=== PATIENT | female | born 1930 | race Two or more races ===

== ENCOUNTER 2017-06-14 19:40 | Emergency (ER) | payer OTHER ==
--- NOTE | 2017-06-14 19:52 | PDOC ---
History of Present Illness - General History Source: Patient, Family <Anatoly Wallace - Last Filed: 06/14/17 23:46> - General History Source: Patient Exam Limitations: No Limitations - History of Present Illness Initial Comments: 06/14/17 22:30 Patient is a 86 year old female with a significant past medical history of AFIB , CHF, HTN, Hyperlipidemia, Mitral Insufficiency, Diverticulosis who presents to the ED with complaints of Upper left extremity pain beginning 4 hours ago. Patient reports chest pain beginning his afternoon and began radiating to the left arm. She reports numbness in the left arm secondary to chest pain. Patient reports sweating, unproductive cough secondary to chest pain. She states she has currently being experiencing episodes of bilateral lower extremity edema. Patient reports intermittent episodes of headache and vision changes secondary to chest pain. She reports taking two asthma when chest pain began to occur 4 hours ago. She states she was given two aspirin en route to ED (Total 4). Denies SOB, difficulty breathing. Denies nausea, vomiting. Denies any other symptoms. Allergies N/A Past surgical history: None. Social history: Denies smoking. PMD: Dr. Briones <Bakari Irvin - Last Filed: 06/14/17 23:47> - General Stated Complaint: LEFT ARM PAIN Time Seen by Provider: 06/14/17 19:47 Past History - Past Medical History Diabetes: Yes HTN: Yes - Immunization History Immunization Up to Date: No - Psycho/Social/Smoking Cessation Hx Anxiety: No Suicidal Ideation: No Smoking History: Never smoked Have you smoked in the past 12 months: No Hx Alcohol Use: No Drug/Substance Use Hx: No Substance Use Type: None Hx Substance Use Treatment: No <Anatoly Wallace - Last Filed: 06/14/17 23:46> <Bakari Irvin - Last Filed: 06/14/17 23:47> - Past Medical History Allergies/Adverse Reactions: Allergies Allergy/AdvReac Type Severity Reaction Status Date / Time No Known Allergies Allergy Verified 03/11/15 13:16 Home Medications: Ambulatory Orders Aspirin [ASA -] 81 mg PO DAILY 03/11/15 Bisacodyl [Laxative] 5 mg PO DAILY 03/11/15 Melatonin 5 mg PO DAILY 03/11/15 Atorvastatin Ca [Lipitor] 80 mg PO HS tablet 03/13/15 Clopidogrel Bisulfate [Plavix -] 75 mg PO DAILY #30 tablet 03/13/15 Diltiazem Cd [Cardizem Cd -] 120 mg PO DAILY #30 cap.cd.24h 03/13/15 Furosemide [Lasix -] 40 mg PO DAILY tablet 03/13/15 Metoprolol Succinate [Toprol XL -] 25 mg PO BID #40 tab.sr.24h 03/13/15 Review of Systems - Review of Systems Able to Perform ROS?: Yes Comments:: 06/14/17 23:47 CONSTITUTIONAL: Absent: fever, no chills, no fatigue EYES: Absent: visual changes ENT: Absent: ear pain, no sore throat CARDIOVASCULAR: Absent: chest pain, no palpitations RESPIRATORY: Absent: cough, no SOB GI: Absent: abdominal pain, no nausea, no vomiting, no constipation, no diarrhea GENITOURINARY: Absent: dysuria, no frequency, no hematuria MUSCULOSKELETAL: Absent: back pain, no arthralgia, no myalgia SKIN: Absent: rash All Other Systems: Reviewed and Negative <Bakari Irvin - Last Filed: 06/14/17 23:47> *Physical Exam - Vital Signs Last Vital Signs Temp Pulse Resp BP Pulse Ox 97.3 F L 79 18 186/92 96 06/14/17 19:45 06/14/17 19:45 06/14/17 19:45 06/14/17 19:45 06/14/17 19:45 - Physical Exam Comments: 06/14/17 23:47 GENERAL: Well-appearing, well-nourished. No apparent distress. HEENT: Normocephalic, atraumatic. PERRL, EOM intact. CARDIOVASCULAR: Normal S1, S2. Regular rate and rhythm. PULMONARY: Clear to auscultation bilaterally. ABDOMEN: Soft, non-distended, non-tender. EXTREMITIES: Normal ROM in all four extremities. No gross deformities. SKIN: Warm, dry. No rash NEUROLOGICAL: No focal neurological deficits. <Bakari Irvin - Last Filed: 06/14/17 23:47> ED Treatment Course - LABORATORY CBC & Chemistry Diagram: 06/14/17 20:23 06/14/17 20:23 - RADIOLOGY Radiology Studies Ordered: Category Date Time Status CHEST X-RAY PORTABLE* [RAD] Stat Radiology 06/14/17 19:51 Ordered <Anatoly Wallace - Last Filed: 06/14/17 23:46> - LABORATORY CBC & Chemistry Diagram: 06/14/17 20:23 06/14/17 20:23 - ADDITIONAL ORDERS Additional order review: Laboratory Results 06/14/17 06/14/17 06/14/17 20:30 20:23 20:23 INR 1.05 Sodium Potassium Chloride Carbon Dioxide Anion Gap BUN Creatinine Creat Clearance w eGFR Random Glucose Calcium Magnesium Total Bilirubin AST ALT Alkaline Phosphatase Creatine Kinase Troponin I B-Natriuretic Peptide 523.59 H Total Protein Albumin Urine Color Straw Urine Appearance Clear Urine pH 6.0 Urine Protein Negative Urine Glucose (UA) 3+ H Urine Ketones Negative Urine Blood Negative Urine Nitrite Negative Urine Bilirubin Negative Urine Urobilinogen Negative Ur Leukocyte Esterase Negative 06/14/17 20:23 INR Sodium 138 Potassium 4.0 Chloride 101 Carbon Dioxide 27 Anion Gap 10 BUN 21 H Creatinine 1.1 H D Creat Clearance w eGFR 46.88 Random Glucose 269 H D Calcium 8.9 Magnesium 2.1 Total Bilirubin 0.3 D AST 16 D ALT 24 Alkaline Phosphatase 100 Creatine Kinase 68 Troponin I < 0.02 B-Natriuretic Peptide Total Protein 7.7 Albumin 4.1 Urine Color Urine Appearance Urine pH Urine Protein Urine Glucose (UA) Urine Ketones Urine Blood Urine Nitrite Urine Bilirubin Urine Urobilinogen Ur Leukocyte Esterase 06/14/17 20:23 RBC 3.85 MCV 91.2 MCHC 34.2 RDW 15.7 H MPV 10.3 Neutrophils % 69.7 Lymphocytes % 22.8 Monocytes % 7.2 Eosinophils % 0.1 D Basophils % 0.2 <Bakari Irvin - Last Filed: 06/14/17 23:47> Medical Decision Making - Medical Decision Making 06/14/17 22:42 Dr. Wallace: The scribe's documentation has been prepared under my direction and personally reviewed by me in its entirery. I confirm that the note above accurately reflects all work, treatment, procedures, and medical decision making performed by me. <Anatoly Wallace - Last Filed: 06/14/17 23:46> *DC/Admit/Observation/Transfer - Discharge Dispostion Admit: No <Anatoly Wallace - Last Filed: 06/14/17 23:46> - Attestations Scribe Attestion: 06/14/17 22:30 Documentation prepared by Bakari Irvin, acting as medical billing and coding specialist for Anatoly Wallace MD. <Bakari Irvin - Last Filed: 06/14/17 23:47> Diagnosis at time of Disposition: Left shoulder pain Qualifiers: Chronicity: unspecified Qualified Code(s): M25.512 - Pain in left shoulder - Discharge Dispostion Disposition: HOME Condition at time of disposition: Stable - Referrals Referrals: Bruno Briones MD [Primary Care Provider] - - Patient Instructions Printed Discharge Instructions: DI for Shoulder Pain Additional Instructions: Take Tylenol every 6 hours for pain, Return if symptoms become worse or follow up with your doctor
[2017-06-14 19:57] VITALS: BP 186/92; PULSE 79; TEMP 97.3; BMI 33.3
[2017-06-14 20:50] LABS: BASOPHIL 0.2 % (0-2.0); EOSINOPHIL 0.1 % (0-4.5); MCH 31.2 pg (25.7-33.7); MCHC 34.2 g/dl (32.0-36.0); MEAN CELL VOLUME 91.2 fl (80-96); MEAN PLT VOLUME 10.3 fl (7.5-11.1); NEUTROPHILS 69.7 % (42.8-82.8); PLATELET COUNT 116 K/MM3 (134-434); RDW 15.7 % (11.6-15.6); WHITE BLOOD COUNT 6.1 K/mm3 (4.0-10.0)
[2017-06-14 20:52] LABS: URINE APPEARANCE CLEAR; URINE BILIRUBIN NEGATIVE (NEGATIVE); URINE BLOOD NEGATIVE (NEGATIVE); URINE COLOR STRAW; URINE GLUCOSE (UA) 3+ (NEGATIVE); URINE KETONE NEGATIVE (NEGATIVE); URINE LEUK ESTERASE NEGATIVE (NEGATIVE); URINE NITRITE NEGATIVE (NEGATIVE); URINE PROTEIN NEGATIVE (NEGATIVE); URINE UROBILINOGEN NEGATIVE mg/dL (0.2-1.0)
[2017-06-14 21:25] LABS: ALBUMIN 4.1 g/dl (3.4-5.0); ANION GAP 10 (8-16); CALCIUM 8.9 mg/dL (8.5-10.1); CO2 27 mmol/L (21-32); CREATININE 1.1 mg/dL (0.55-1.02); GLUCOSE,RANDOM 269 mg/dL (74-106); MAGNESIUM 2.1 mg/dL (1.8-2.4); SGOT/AST 16 U/L (15-37); SGPT/ALT 24 U/L (12-78)
[2017-06-14 21:29] LABS: ALK PHOS 100 U/L (45-117); BILIRUBIN,TOTAL 0.3 mg/dL (0.2-1.0); CPK 68 IU/L (26-192); TOT PROT 7.7 g/dl (6.4-8.2); TROPONIN I < 0.02 ng/ml (0.00-0.05)
[2017-06-14 21:31] LABS: INR 1.05 (0.82-1.09); PROTHROMBIN TIME (PATIENT) 11.6 SEC (9.98-11.88)
[2017-06-14] MEDS ORDERED: ACETAMINOPHEN 325 MG TABLET (FP) PO ONE (22:41)
[2017-06-14] MEDS ORDERED: ACETAMINOPHEN 325 MG TABLET (FP) ONE (23:09)
--- NOTE | 2017-06-15 09:00 | EKG ---
Test Reason : Blood Pressure : / mmHG Vent. Rate : 085 BPM Atrial Rate : 081 BPM P-R Int : 000 ms QRS Dur : 094 ms QT Int : 402 ms P-R-T Axes : 000 -58 061 degrees QTc Int : 478 ms ATRIAL FIBRILLATION LEFT ANTERIOR FASCICULAR BLOCK ABNORMAL ECG WHEN COMPARED WITH ECG OF 12-MAR-2015 10:36, T WAVE INVERSION NO LONGER EVIDENT IN INFERIOR LEADS Confirmed by SOFIA MACEDO MD ([id number]) on 06/15/2017 9:00:25 AM Referred By: Confirmed By:SOFIA MACEDO MD
== END 2017-06-14 23:51 | disposition home or self-care (01) ==
LOC: JER 19:40
DX: M25.512 Pain in left shoulder (principal); I48.91 Unspecified atrial fibrillation; I25.10 Atherosclerotic heart disease of native coronary artery without angina pectoris; I11.0 Hypertensive heart disease with heart failure; I34.0 Nonrheumatic mitral (valve) insufficiency
CPT/HCPCS: 36415; 71010-TC; 80053; 81003; 83735; 83880; 84484; 85025; 85610; 93005; 93010; 99283-25

== ENCOUNTER 2017-06-22 10:56 | Inpatient (IN) | payer OTHER ==
--- NOTE | 2017-06-22 11:09 | PDOC ---
Attending Attestation - Resident Resident Name: Amanda,Jon - ED Attending Attestation I have performed the following: I have examined & evaluated the patient, The case was reviewed & discussed with the resident, I agree w/resident's findings & plan, Exceptions are as noted - HPI HPI: 06/22/17 16:15 86yo female with L shoulder pain, L upper back pain, b/l calf cramping, l ankle pain, generalized weakness. Denies trauma. States her joints hurt. No f/c. No back pain. No dysuria. Had a steroid injection to L shoulder by PMD 1 week ago. decreased ROM of joints secondary to pain. - Physicial Exam PE: 06/22/17 16:17 Gen: awake, alert, oriented, appears uncomfortable Heent: perrl, eomi, mmm neck: supple, no midline ttp, lateral paraspinal L neck ttp heart: +s1s2 reg Lungs: cta b/l abd: soft, nt/nd +bs back: no step offs/deformities, no midline ttp, no signs/symtpoms of caude equina, rectal muscles intact, perineal sensation intact neuro: cn ii-xii grossly intact, generally weak, limited ROM of L UE and LE secondary to pain, - Medical Decision Making 06/22/17 16:23 a/p: 86yo female with shoulder, leg, ankle pain, weakness -labs -ct head -ekg -doppler -reassess 06/22/17 16:23 pt unable to ambulate in the ED. feeling mildly better after valium to L shoulder. pt lives alone. 06/22/17 16:[address] Carrasco (covering for Dr. Ayala - covering for Dr. Briones) - accepts pt to service.
--- NOTE | 2017-06-22 11:09 | PDOC ---
History of Present Illness - General History Source: Patient, Family (Daughter) Exam Limitations: Language Barrier (Patient Kiswahili speaking only) - History of Present Illness Initial Comments: 06/22/17 11:08 Patient is an 86 year old female with a history of AFIB, CHF, HTN, HLD,mitral insufficiency and diverticulosis presenting with one day of left leg weakness and one week of left arm pain. Patient is unable to ambulate. Patient was here one week ago c/o arm pain and found to have lab abnormalities, BUN, BNP - General Chief Complaint: Pain, Acute Stated Complaint: LEG PAIN Time Seen by Provider: 06/22/17 11:08 Past History - Past Medical History Diabetes: Yes HTN: Yes - Immunization History Immunization Up to Date: No - Psycho/Social/Smoking Cessation Hx Anxiety: No Suicidal Ideation: No Smoking History: Never smoked Have you smoked in the past 12 months: No Hx Alcohol Use: No Drug/Substance Use Hx: No Substance Use Type: None Hx Substance Use Treatment: No - Past Medical History Allergies/Adverse Reactions: Allergies Allergy/AdvReac Type Severity Reaction Status Date / Time atenolol AdvReac Verified 06/22/17 11:19 liraglutide [From Victoza] AdvReac Verified 06/22/17 11:19 metoprolol AdvReac Verified 06/22/17 11:19 metoprolol succinate AdvReac Verified 06/22/17 11:19 [From Toprol XL] valsartan [From Diovan] AdvReac Verified 06/22/17 11:19 Home Medications: Ambulatory Orders Aspirin [ASA -] 81 mg PO DAILY 03/11/15 Bisacodyl [Laxative] 5 mg PO DAILY 03/11/15 Furosemide [Lasix -] 40 mg PO DAILY tablet 03/13/15 Cetirizine HCl [Zyrtec -] 10 mg PO DAILY 06/22/17 Cholecalciferol (Vitamin D3) [Vitamin D3 -] 50,000 unit PO WEEKLY 06/22/17 Diclofenac Sodium [Voltaren] 100 gm TP BID 06/22/17 Diltiazem Cd [Cardizem Cd -] 120 mg PO BID 06/22/17 Insulin Aspart [Novolog] 2 - 12 unit SQ ASDIR 06/22/17 Insulin Glargine,Hum.rec.anlog [Lantus Solostar PEN (NF)] 30 units SQ HS Linaclotide [Linzess] 145 mcg PO DAILY 06/22/17 Review of Systems - Review of Systems Able to Perform ROS?: Yes Comments:: 06/22/17 12:46 See HPI Denies ANAYA, changes to vision and hearing Endorses dry throat, mild shortness of breath Denies chest pain Denies abdominal pain, nausea, vomiting; Endorses chronic constipation Endorses pain to left shoulder Endorses numbness and pain of left leg Endorses chronic periodic urinary incontinence, denies saddle anesthesia Is the patient limited Spanish proficient: Yes ED Treatment Course - LABORATORY CBC & Chemistry Diagram: 06/22/17 11:55 06/22/17 11:55 Medical Decision Making - Medical Decision Making 06/22/17 11:09 86 yo female with history of DM, HTN, HLD, one week of left shoulder pain and new onset left leg "numbness" seen in ED 1 wk ago for left shoulder pain and seen by PCP , + steroid injection 06/22/17 11:58 06/22/17 12:40 CBC WBC 6.9 K/mm3 (4.0-10.0) 06/22/17 11:55 RBC 4.24 M/mm3 (3.60-5.2) 06/22/17 11:55 Hgb 12.7 GM/dL (10.7-15.3) 06/22/17 11:55 Hct 38.7 % (32.4-45.2) 06/22/17 11:55 MCV 91.2 fl (80-96) 06/22/17 11:55 MCH 30.0 pg (25.7-33.7) 06/22/17 11:55 MCHC 32.9 g/dl (32.0-36.0) 06/22/17 11:55 RDW 15.7 % (11.6-15.6) H 06/22/17 11:55 Plt Count 104 K/MM3 (134-434) L 06/22/17 11:55 MPV 10.6 fl (7.5-11.1) 06/22/17 11:55 Neutrophils % 71.1 % (42.8-82.8) 06/22/17 11:55 Lymphocytes % 19.2 % (8-40) 06/22/17 11:55 Monocytes % 9.3 % (3.8-10.2) 06/22/17 11:55 Eosinophils % 0.1 % (0-4.5) 06/22/17 11:55 Basophils % 0.3 % (0-2.0) 06/22/17 11:55 grossly unchanged from last visit, slight worsening of plt CMP Sodium 141 mmol/L (136-145) 06/22/17 11:55 Potassium 4.1 mmol/L (3.5-5.1) 06/22/17 11:55 Chloride 104 mmol/L (98-107) 06/22/17 11:55 Carbon Dioxide 28 mmol/L (21-32) 06/22/17 11:55 Anion Gap 9 (8-16) 06/22/17 11:55 BUN 18 mg/dL (7-18) 06/22/17 11:55 Creatinine 0.9 mg/dL (0.55-1.02) 06/22/17 11:55 Creat Clearance w eGFR 59.09 (>60) 06/22/17 11:55 Random Glucose 245 mg/dL (74-106) H 06/22/17 11:55 Calcium 8.9 mg/dL (8.5-10.1) 06/22/17 11:55 Magnesium 2.4 mg/dL (1.8-2.4) 06/22/17 11:55 Total Bilirubin 0.5 mg/dL (0.2-1.0) D 06/22/17 11:55 AST 15 U/L (15-37) 06/22/17 11:55 ALT 26 U/L (12-78) 06/22/17 11:55 Alkaline Phosphatase 99 U/L (45-117) 06/22/17 11:55 B-Natriuretic Peptide 764.41 pg/ml (5-450) H 06/22/17 11:55 Total Protein 7.0 g/dl (6.4-8.2) 06/22/17 11:55 Albumin 3.8 g/dl (3.4-5.0) 06/22/17 11:55 Grossly unchanged or improved from last visit, Slight elevation in BNP 06/22/17 14:11 xrays significant only for aoteopenia and swelling and vascular calcifications of the leg and ankle 06/22/17 15:[address]: No acute intracranial pathology Cervical spine CT: US: No evidence of DVTs Xray shoulder: Unremarkable CXR: moderate cardiomegaly, Leg xray: osteopenia, no fracture, soft tissue swelling Ankle xray: no fracture, soft tissue swelling 06/22/17 16:27 Patient is unable to ambulate, Dr. Lugo spoke with Dr. Carrasco about admitting patient for evaluation and PT. Dr. Carrasco agreed to admit to [facility] 06/22/17 16:29 *DC/Admit/Observation/Transfer - Discharge Dispostion Admit: Yes Diagnosis at time of Disposition: Left leg weakness Leg pain Qualifiers: Laterality: left Qualified Code(s): M79.605 - Pain in left leg Fluid overload Qualifiers: Hypervolemia type: unspecified Qualified Code(s): E87.70 - Fluid overload, unspecified - Referrals Referrals: Bruno Briones MD [Primary Care Provider] -
[2017-06-22 11:15] VITALS: BMI 33.3
[2017-06-22] MEDS ORDERED: diazePAM 5 MG TABLET PO ONE (12:12)
[2017-06-22 12:19] LABS: BASOPHIL 0.3 % (0-2.0); EOSINOPHIL 0.1 % (0-4.5); MCHC 32.9 g/dl (32.0-36.0); MEAN CELL VOLUME 91.2 fl (80-96); MEAN PLT VOLUME 10.6 fl (7.5-11.1); NEUTROPHILS 71.1 % (42.8-82.8); PLATELET COUNT 104 K/MM3 (134-434); RDW 15.7 % (11.6-15.6); WHITE BLOOD COUNT 6.9 K/mm3 (4.0-10.0)
[2017-06-22 12:25] LABS: ALBUMIN 3.8 g/dl (3.4-5.0); ANION GAP 9 (8-16); BILIRUBIN,TOTAL 0.5 mg/dL (0.2-1.0); CALCIUM 8.9 mg/dL (8.5-10.1); CO2 28 mmol/L (21-32); CREATININE 0.9 mg/dL (0.55-1.02); GLUCOSE,RANDOM 245 mg/dL (74-106); SGOT/AST 15 U/L (15-37); SGPT/ALT 26 U/L (12-78)
[2017-06-22 12:28] LABS: ALK PHOS 99 U/L (45-117)
[2017-06-22 12:40] LABS: MAGNESIUM 2.4 mg/dL (1.8-2.4)
[2017-06-22] MEDS ORDERED: diazePAM 2 MG TABLET ONE (12:47)
[2017-06-22 13:43] LABS: URINE APPEARANCE SLCLOUDY; URINE BILIRUBIN NEGATIVE (NEGATIVE); URINE BLOOD 1+ (NEGATIVE); URINE COLOR YELLOW; URINE GLUCOSE (UA) 1+ (NEGATIVE); URINE KETONE NEGATIVE (NEGATIVE); URINE NITRITE NEGATIVE (NEGATIVE); URINE PROTEIN NEGATIVE (NEGATIVE); URINE UROBILINOGEN NEGATIVE mg/dL (0.2-1.0)
[2017-06-22 14:15] LABS: URINE LEUK ESTERASE 1+ (NEGATIVE)
[2017-06-22 14:18] LABS: URINE RBC 5 /hpf (0-3); URINE WBC 9 /hpf (3-5)
[2017-06-22 14:19] LABS: URINE MUCUS RARE
[2017-06-22] MEDS ORDERED: FUROSEMIDE 40 MG/4 ML INJECTABLE VIAL IVPB ONE (16:12)
[2017-06-22] MEDS ORDERED: FUROSEMIDE 40 MG/4 ML INJECTABLE VIAL ONE (16:34)
[2017-06-22] MEDS ORDERED: BISACODYL 5 MG TABLET.DR (FP) PO PRN (18:59)
[2017-06-22] MEDS ORDERED: ACETAMINOPHEN 325 MG TABLET (FP) PO PRN (18:59)
[2017-06-22] MEDS ORDERED: hydrALAZINE HCL 10 MG TABLET PO ONE (19:02)
[2017-06-22] MEDS: INSULIN SLIDING SCALE (NOVOLOG) 1 VIAL SQ SCH (21:51)
[2017-06-22] MEDS: INSULIN DETEMIR 100 UNITS/ML MDV SQ SCH (21:52)
[2017-06-23] MEDS: INSULIN SLIDING SCALE (NOVOLOG) 1 VIAL SQ SCH ×4 (06:44→21:30)
[2017-06-23 08:42] LABS: MCH 30.3 pg (25.7-33.7); MCHC 33.9 g/dl (32.0-36.0); MEAN CELL VOLUME 89.4 fl (80-96); PLATELET COUNT 105 K/MM3 (134-434); RDW 15.3 % (11.6-15.6)
[2017-06-23 09:26] LABS: ALBUMIN 3.6 g/dl (3.4-5.0); ALK PHOS 102 U/L (45-117); ANION GAP 6 (8-16); BILIRUBIN,TOTAL 0.7 mg/dL (0.2-1.0); CO2 30 mmol/L (21-32); CREATININE 0.7 mg/dL (0.55-1.02); GLUCOSE,RANDOM 160 mg/dL (74-106); SGOT/AST 16 U/L (15-37); SGPT/ALT 25 U/L (12-78); TOT PROT 7.1 g/dl (6.4-8.2)
[2017-06-23] MEDS ORDERED: PT OWN MED DRAWER 7, Y5N ONE (10:01)
[2017-06-23] MEDS: METHYL SALICYLATE/MENTHOL OINT 30 GM TUBE TP SCH (10:04)
[2017-06-23] MEDS: ASPIRIN COATED 81 MG TABLET.EC PO SCH (10:04)
[2017-06-23] MEDS: FUROSEMIDE 40 MG/4 ML INJECTABLE VIAL IVPB SCH (10:05)
--- NOTE | 2017-06-23 10:44 | HP ---
Admitting History and Physical - Primary Care Physician PCP: David Carrasco - Admission Chief Complaint: LEG WEAKNESS/UNSTEADY GAIT History of Present Illness: 86 Y/O FEMALE WITH AFIB/DM/HTN HERE WITH PROGRESSIVELY WORSE WEAKNESS TO LEG AND UNSTEADY GAIT History Source: Patient Limitations to Obtaining History: Poor Historian - Past Medical History Cardiovascular: Yes: AFIB, CHF, HTN, Hyperlipdemia, Mitral Insufficiency Gastrointestinal: Yes: Diverticulosis. No: Ascites, Cancer, Constipation, Crohn 's Disease, Diverticulitis, Esophageal Varices, Gastritis, GERD, GI Bleed, Hemorrhoids, Hiatal Hernia, Inflamatory Bowel Disease, Irritable Bowel Disease, Pancreatitis, Peptic Ulcer Disease, Ulcerative Colitis, Other Endocrine: Yes: Diabetes Mellitus. No: Kenedy's Disease, Mio's Disease, Diabetes Insipidus, Hyperparathyroidism, Hyperthyroidism, Hypothyroidism, Osteopenia, SIADH, Other - Past Surgical History Past Surgical History: Yes: None. No: AAA Repair, AICD, Amputation, Appendectomy, Arthrosocopy, AV Fistula/Graft, Bariatric Surgery, Breast Biopsy, Bypass, CABG, Carotid Endarterectomy, Cataract Removal, Cholecystectomy, Colectomy, Colonoscopy, Colostomy, Craniotomy, , Cystectomy, Hernia Repair, Hysterectomy, Ileal Conduit, Ileosotomy, Joint Replacement, Kidney Transplant, Laminectomy, Liver Transplant, Mastectomy, Nephrectomy, Oopherectomy , Orchiectomy, Permanent Pacemaker, Prostatectomy, Splenectomy, Stent, Thoracotomy, TURP, Tonsillectomy, Tubal Ligation, Upper Endoscopy, Valve Replacement, Vasectomy, Vein Stripping/Ligation - Smoking History Smoking history: Never smoked Have you smoked in the past 12 months: No - Alcohol/Substance Use Hx Alcohol Use: No History of Substance Use: reports: None - Social History ADL: Independent Occupation: retired History of Recent Travel: No Home Medications - Allergies Allergies/Adverse Reactions: Allergies Allergy/AdvReac Type Severity Reaction Status Date / Time atenolol AdvReac Verified 06/22/17 11:19 liraglutide [From Victoza] AdvReac Verified 06/22/17 11:19 metoprolol AdvReac Verified 06/22/17 11:19 metoprolol succinate AdvReac Verified 06/22/17 11:19 [From Toprol XL] valsartan [From Diovan] AdvReac Verified 06/22/17 11:19 - Home Medications Home Medications: Ambulatory Orders Aspirin [ASA -] 81 mg PO DAILY 03/11/15 Bisacodyl [Laxative] 5 mg PO DAILY 03/11/15 Furosemide [Lasix -] 40 mg PO DAILY tablet 03/13/15 Cetirizine HCl [Zyrtec -] 10 mg PO DAILY 06/22/17 Cholecalciferol (Vitamin D3) [Vitamin D3 -] 50,000 unit PO WEEKLY 06/22/17 Diclofenac Sodium [Voltaren] 100 gm TP BID 06/22/17 Diltiazem Cd [Cardizem Cd -] 120 mg PO BID 06/22/17 Insulin Aspart [Novolog] 2 - 12 unit SQ ASDIR 06/22/17 Insulin Glargine,Hum.rec.anlog [Lantus Solostar PEN (NF)] 30 units SQ HS Linaclotide [Linzess] 145 mcg PO DAILY 06/22/17 Review of Systems - Review of Systems Constitutional: reports: Weakness Eyes: reports: No Symptoms HENT: reports: No Symptoms Neck: reports: No Symptoms Cardiovascular: reports: No Symptoms Respiratory: reports: No Symptoms Gastrointestinal: reports: No Symptoms Genitourinary: reports: No Symptoms Musculoskeletal: reports: Muscle Weakness Integumentary: reports: No Symptoms Neurological: reports: Unsteady Gait, Weakness Endocrine: reports: No Symptoms Hematology/Lymphatic: reports: No Symptoms Psychiatric: reports: Other Physical Examination Vital Signs: Vital Signs Temperature 97.4 F L 06/23/17 06:00 Pulse Rate 76 06/23/17 06:00 Respiratory Rate 16 06/23/17 06:00 Blood Pressure 140/71 06/22/17 22:00 O2 Sat by Pulse Oximetry (%) 96 06/22/17 22:00 Constitutional: Yes: Mild Distress Eyes: Yes: WNL HENT: Yes: WNL Neck: Yes: WNL Cardiovascular: Yes: Pulse Irregular Respiratory: Yes: WNL Gastrointestinal: Yes: WNL Renal/: Yes: WNL Musculoskeletal: Yes: WNL Extremities: Yes: WNL Edema: No Integumentary: Yes: WNL Wound/Incision: Yes: Clean/Dry Neurological: Yes: Pre-Existing Deficit, Weakness ...Motor Strength: LLE, RLE (WEAKNESS) Psychiatric: Yes: Other Labs: CBC, BMP 06/23/17 08:00 06/23/17 08:00 Problem List - Problems (1) Left leg weakness Code(s): R29.898 - OTH SYMPTOMS AND SIGNS INVOLVING THE MUSCULOSKELETAL SYSTEM (2) Leg pain Code(s): M79.606 - PAIN IN LEG, UNSPECIFIED Qualifiers: Laterality: left Qualified Code(s): M79.605 - Pain in left leg (3) A-fib Code(s): I48.91 - UNSPECIFIED ATRIAL FIBRILLATION Assessment/Plan PT EVAL CT HEAD/XRAYS LEGS NO ACUTE CHANGES SNF WHEN READY SSI HTN AND AFIB CONTROL BRM AC/HS
[2017-06-23] MEDS ORDERED: INSULIN (NOVOLOG) ASPART 100 UNITS/ML 10ML VIAL ONE ×2 (17:30→19:59)
[2017-06-23] MEDS: INSULIN DETEMIR 100 UNITS/ML MDV SQ SCH (21:30)
[2017-06-24] MEDS: INSULIN SLIDING SCALE (NOVOLOG) 1 VIAL SQ SCH ×4 (06:02→23:34)
[2017-06-24] MEDS ORDERED: PT OWN MED DRAWER 7, Y5N ONE (09:18)
[2017-06-24] MEDS: FUROSEMIDE 40 MG/4 ML INJECTABLE VIAL IVPB SCH ×2 (09:23→12:40)
[2017-06-24] MEDS: ASPIRIN COATED 81 MG TABLET.EC PO SCH ×2 (09:23→12:40)
[2017-06-24] MEDS: METHYL SALICYLATE/MENTHOL OINT 30 GM TUBE TP SCH (09:23)
--- NOTE | 2017-06-24 13:44 | PN ---
Progress Note, Physician Chief Complaint: AWAKE, DAUGHTER BEDSIDE THEY ARE IN AN AGREEMENT TO GO TO SNF - Current Medication List Current Medications: Active Medications Acetaminophen (Tylenol -) 650 mg PO Q6H PRN PRN Reason: FEVER OR PAIN Aspirin (Ecotrin -) 81 mg PO DAILY [facility] Last Admin: 06/24/17 12:40 Dose: Not Given Bisacodyl (Dulcolax -) 5 mg PO DAILY PRN PRN Reason: CONSTIPATION Last Admin: 06/24/17 09:35 Dose: 5 mg Diltiazem HCl (Cardizem Cd -) 120 mg PO DAILY [facility] Last Admin: 06/24/17 09:23 Dose: 120 mg Furosemide (Lasix Injection -) 40 mg IVPB DAILY [facility] Last Admin: 06/24/17 12:40 Dose: Not Given Insulin Aspart (Novolog Vial Sliding Scale -) 1 vial SQ ACHS [place]LEY PRN Reason: Protocol Last Admin: 06/24/17 12:40 Dose: Not Given Insulin Detemir (Levemir Vial) 25 units SQ HS [facility] Last Admin: 06/23/17 21:30 Dose: 25 units Methyl Salicylate (Jose-Cyr -) 1 applic TP DAILY [facility] Last Admin: 06/24/17 09:23 Dose: 1 applic - Objective Vital Signs: Vital Signs Temperature 97.0 F L 06/24/17 09:38 Pulse Rate 84 06/24/17 09:38 Respiratory Rate 20 06/24/17 09:38 Blood Pressure 132/88 06/24/17 09:38 O2 Sat by Pulse Oximetry (%) 97 06/24/17 09:00 Constitutional: Yes: No Distress Eyes: Yes: WNL HENT: Yes: WNL Neck: Yes: WNL Cardiovascular: Yes: WNL Respiratory: Yes: WNL Gastrointestinal: Yes: WNL Genitourinary: Yes: WNL Musculoskeletal: Yes: Joint Stiffness, Muscle Weakness Extremities: Yes: Deformity Edema: Yes Edema: LLE: 2+, RLE: 2+ Peripheral Pulses WNL: Yes Integumentary: Yes: WNL Wound/Incision: Yes: Clean/Dry Neurological: Yes: Unsteady Gait, Weakness ...Motor Strength: LLE, RLE Psychiatric: Yes: Other Labs: CBC, BMP 06/23/17 08:00 06/23/17 08:00 Problem List - Problems (1) Left leg weakness Code(s): R29.898 - OTH SYMPTOMS AND SIGNS INVOLVING THE MUSCULOSKELETAL SYSTEM (2) Leg pain Code(s): M79.606 - PAIN IN LEG, UNSPECIFIED Qualifiers: Laterality: left Qualified Code(s): M79.605 - Pain in left leg (3) A-fib Code(s): I48.91 - UNSPECIFIED ATRIAL FIBRILLATION Assessment/Plan PT EVAL CT HEAD/XRAYS LEGS NO ACUTE CHANGES SNF WHEN READY SSI HTN AND AFIB CONTROL BRM AC/HS
[2017-06-24] MEDS: INSULIN DETEMIR 100 UNITS/ML MDV SQ SCH (23:33)
[2017-06-25] MEDS ORDERED: PT OWN MED DRAWER 7, Y5N ONE (05:07)
[2017-06-25] MEDS: INSULIN SLIDING SCALE (NOVOLOG) 1 VIAL SQ SCH ×3 (06:19→17:51)
[2017-06-25] MEDS: FUROSEMIDE 40 MG/4 ML INJECTABLE VIAL IVPB SCH (10:03)
[2017-06-25] MEDS: ASPIRIN COATED 81 MG TABLET.EC PO SCH (10:03)
[2017-06-25] MEDS: BISACODYL 5 MG TABLET.DR (FP) PO PRN (13:13)
[2017-06-25 13:21] LABS: ANION GAP 8 (8-16); CALCIUM 8.7 mg/dL (8.5-10.1); CO2 28 mmol/L (21-32); CREATININE 0.9 mg/dL (0.55-1.02); GLUCOSE,RANDOM 281 mg/dL (74-106)
--- NOTE | 2017-06-25 13:22 | PN ---
Progress Note, Physician Chief Complaint: admitted for leg weakness and unsteady gait- refusing to take meds wants to use her own mesds says that aspirin is not [place] aspirin, will not take insulin despite elevated bgm family aware to get patient own meds from home - Current Medication List Current Medications: Active Medications Acetaminophen (Tylenol -) 650 mg PO Q6H PRN PRN Reason: FEVER OR PAIN Aspirin (Ecotrin -) 81 mg PO DAILY [facility] Last Admin: 06/25/17 10:03 Dose: Not Given Bisacodyl (Dulcolax -) 10 mg PO DAILY PRN PRN Reason: CONSTIPATION Diltiazem HCl (Cardizem Cd -) 120 mg PO DAILY [facility] Last Admin: 06/25/17 10:03 Dose: 120 mg Insulin Aspart (Novolog Vial Sliding Scale -) 1 vial SQ ACHS [place] PRN Reason: Protocol Last Admin: 06/25/17 12:50 Dose: Not Given Insulin Detemir (Levemir Vial) 25 units SQ HS [facility] Last Admin: 06/24/17 23:33 Dose: Not Given Methyl Salicylate (Jose-Cyr -) 1 applic TP DAILY [facility] Last Admin: 06/24/17 09:23 Dose: 1 applic - Objective Vital Signs: Vital Signs Temperature 98.1 F 06/25/17 06:00 Pulse Rate 84 06/25/17 06:00 Respiratory Rate 20 06/25/17 06:00 Blood Pressure 151/85 06/25/17 06:00 O2 Sat by Pulse Oximetry (%) 97 06/24/17 21:00 Constitutional: Yes: Calm Cardiovascular: Yes: Regular Rate and Rhythm, S1, S2 Respiratory: Yes: CTA Bilaterally Gastrointestinal: Yes: Normal Bowel Sounds, Soft Edema: No Neurological: Yes: Alert Labs: CBC, BMP 06/23/17 08:00 Problem List - Problems (1) Left leg weakness Assessment/Plan: PT eval PMR consult martha need snf Code(s): R29.898 - OTH SYMPTOMS AND SIGNS INVOLVING THE MUSCULOSKELETAL SYSTEM (2) A-fib Assessment/Plan: on asa as has refused AC ni past per old records cardio eval cardizem Code(s): I48.91 - UNSPECIFIED ATRIAL FIBRILLATION (3) CHF (congestive heart failure) Assessment/Plan: h/o diastolic heart failure will repeat echo Code(s): I50.9 - HEART FAILURE, UNSPECIFIED (4) Diabetes Assessment/Plan: hga1c 9.3 uncontrolled endocrine eval patient to use own insulin refusing to take insulin from hospital Code(s): E11.9 - TYPE 2 DIABETES MELLITUS WITHOUT COMPLICATIONS
--- NOTE | 2017-06-25 16:49 | CON.CARD ---
Cardiology Consult (text) - Consultation Consultation Note: cc: cad/afib hpi: 86 yo with h/o afib (asa only, refuses AC), NSTEMI 03/2015 (medical management), htn, hld, dCHF (takes lasix prn up to 3 times/week), mod MR, dm, here with lt LE weakness. States her LE strength is improved. Per report, patient had also endorsed left arm pain. But unable to clarify this history. Currently endorsing LE pain. Endorses history of shoulder and neck pain. Takes lasix prn at home - up to 3 times a week when her LE edema worsens and not at all when her she is asx. currently does not feel that she has any LE edema. has been declining ASA here and IV lasix. Has been taking diltiazem. No sob, palps, dizzy, loc, pnd, orthopnea, le edema. Sees Dr. Parrish for cards. pmh: per hpi psh: non contrib social: no toxic habits ros: per hpi; no f/c/s, nvd, cough, nasal congestion, ANAYA, vision changes, rash , wt changes fam: no family h/o scd. Ambulatory Orders Aspirin [ASA -] 81 mg PO DAILY 03/11/15 Bisacodyl [Laxative] 5 mg PO DAILY 03/11/15 Furosemide [Lasix -] 40 mg PO DAILY tablet 03/13/15 Cetirizine HCl [Zyrtec -] 10 mg PO DAILY 06/22/17 Cholecalciferol (Vitamin D3) [Vitamin D3 -] 50,000 unit PO WEEKLY 06/22/17 Diclofenac Sodium [Voltaren] 100 gm TP BID 06/22/17 Diltiazem Cd [Cardizem Cd -] 120 mg PO BID 06/22/17 Insulin Aspart [Novolog] 2 - 12 unit SQ ASDIR 06/22/17 Insulin Glargine,Hum.rec.anlog [Lantus Solostar PEN (NF)] 30 units SQ HS Linaclotide [Linzess] 145 mcg PO DAILY 06/22/17 Current Medications Acetaminophen (Tylenol -) 650 mg PO Q6H PRN PRN Reason: FEVER OR PAIN Aspirin (Ecotrin -) 81 mg PO DAILY [facility] Last Admin: 06/25/17 10:03 Dose: Not Given Bisacodyl (Dulcolax -) 10 mg PO DAILY PRN PRN Reason: CONSTIPATION Last Admin: 06/25/17 13:13 Dose: 10 mg Diltiazem HCl (Cardizem Cd -) 120 mg PO DAILY [facility] Last Admin: 06/25/17 10:03 Dose: 120 mg Insulin Aspart (Novolog Vial Sliding Scale -) 1 vial SQ ACHS [facility] PRN Reason: Protocol Last Admin: 06/25/17 12:50 Dose: Not Given Insulin Detemir (Levemir Vial) 25 units SQ HS [facility] Last Admin: 06/24/17 23:33 Dose: Not Given Methyl Salicylate (Jose-Cyr -) 1 applic TP DAILY [facility] Last Admin: 06/24/17 09:23 Dose: 1 applic pe: Vital Signs - 24 hr 06/24/17 06/24/17 06/24/17 17:33 21:00 22:00 Temperature 97.0 F L 98.7 F Pulse Rate 88 85 Respiratory 20 20 20 Rate Blood Pressure 134/88 154/92 O2 Sat by Pulse 97 Oximetry (%) 06/25/17 06/25/17 06/25/17 06:00 09:00 10:00 Temperature 98.1 F 97.0 F L Pulse Rate 84 84 Respiratory 20 18 Rate Blood Pressure 151/85 150/90 O2 Sat by Pulse 97 Oximetry (%) 06/25/17 13:15 Temperature 98.6 F Pulse Rate 103 H Respiratory 18 Rate Blood Pressure 138/72 O2 Sat by Pulse Oximetry (%) Intake & Output 06/23/17 06/24/17 06/25/17 06/26/17 07:59 07:59 07:59 07:59 Intake Total 150 850 710 150 Output Total 200 Balance -50 850 710 150 Weight 200 lb nad, no jvd irreg, s1 s2 no mrg cta b/l, nl eff no le e/c/c abd nt nd pos bs pos dp pt no jaundice/diaphoresis aaox3 CBC, BMP 06/23/17 08:00 06/25/17 12:40 Laboratory Tests 06/22/17 06/23/17 06/23/17 11:55 08:00 11:30 Hemoglobin A1c % 9.5 H D Magnesium 2.4 Total Bilirubin 0.7 D AST 16 ALT 25 Alkaline Phosphatase 102 B-Natriuretic Peptide 764.41 H Albumin 3.6 Laboratory Tests 03/11/15 06/14/17 17:20 20:23 B-Natriuretic Peptide 1112.55 H 523.59 H cxr: limited evaluation of left lung base. head CT: no acute pathology no ekg. echo 02/2016: nl lv size, low nl lvef, mild global hk, nl rv, mild lae, mod mr, mild tr, rvsp 40-50 mibi 03/2014: no ischemia, nl lvef cath 10/2014 ([facility] – [place]): non obs cad (mild diffuse pRCA disease was only abnormality noted); also had RHC c/w diastolic chf a/p: 86 yo with h/o afib (asa only, refuses AC), NSTEMI 03/2015 (medical management), htn, hld, dCHF (takes lasix 3 times/week), mod MR, dm, here with lt LE weakness. LE weakness - improving. ongoing eval/mgm't by pmd. Has PT evaluation. diastolic CHF: -currently asx and appears euvolemic. Takes lasix prn as outpatient, refusing IV lasix here. States she currently feels her LE edema is improved from baseline --> ok to hold po lasix. Daily standing weights to better assess volume status. afib: - Overall rate controlled with dilt. Patient on bid dosing at home, but getting daily here. Would increase to bid dosing. - Pt has previously been tried on coumadin, xarelto, eliquis, and pradaxa as outpatient and has stopped taking them due to nonspecific side effects --> declines AC and is managed with ASA alone as outpatient. However, currently declining asa here as inpatient. htn: - has had numerous side effects/intolerances to various med classes. currently overall controlled for age. Continue diltiazem, increasing to outpatient bid dosing. hld: - pt declines statin. mod MR: - routine surveillance echocardiograms as outpatient. No signs of valvular decompensation. bp/diuresis plan as above. CAD - has hx of prior nstemi in 2014. At that time was treated conservatively with medical management only due to her medication noncompliance and hx of self-d' cing meds. She has declined plavix, statin, BB in the past. She has no cp/ angina, continue asa (if she will take) and dilt. Will order EKG.
[2017-06-25] MEDS: METHYL SALICYLATE/MENTHOL OINT 30 GM TUBE TP SCH (17:00)
[2017-06-25] MEDS ORDERED: POTASSIUM CHLORIDE TABS 20 MEQ TABLET.ER (FP) PO ONE ×2 (18:33→22:30)
[2017-06-25] MEDS ORDERED: INSULIN LANTUS SQ SCH ×2 (20:00→20:06)
--- NOTE | 2017-06-26 00:04 | CONSULT ---
Consult Consult Specialty:: endocrine Referred by:: dr isabel cardoza Reason for Consultation:: high blood sugars - History of Present Illness Chief Complaint: difficulty controlling blood sugars History of Present Illness: 86year old female with a history of AFIB, CHF, HTN, HLD,mitral insufficiency and diverticulosis presenting with one day of left leg weakness and one week of left arm pain. Patient is unable to ambulate.has labile bood sugars,taking lantus at bed time has frequent hypo,and hyperglycemia, mostly elevated sugars - Past Medical History Cardio/Vascular: Yes: AFIB, CHF, HTN, Hyperlipdemia, Mitral Insufficiency Gastrointestinal: Yes: Diverticulosis. No: Ascites, Cancer, Constipation, Crohn 's Disease, Diverticulitis, Esophageal Varices, Gastritis, GERD, GI Bleed, Hemorrhoids, Hiatal Hernia, Inflamatory Bowel Disease, Irritable Bowel Disease, Pancreatitis, Peptic Ulcer Disease, Ulcerative Colitis, Other Endocrine: Yes: Diabetes Mellitus. No: Eran's Disease, [place]'s Disease, Diabetes Insipidus, Hyperparathyroidism, Hyperthyroidism, Hypothyroidism, Osteopenia, SIADH, Other - Past Surgical History Past Surgical History: Yes: None. No: AAA Repair, AICD, Amputation, Appendectomy, Arthrosocopy, AV Fistula/Graft, Bariatric Surgery, Breast Biopsy, Bypass, CABG, Carotid Endarterectomy, Cataract Removal, Cholecystectomy, Colectomy, Colonoscopy, Colostomy, Craniotomy, , Cystectomy, Hernia Repair, Hysterectomy, Ileal Conduit, Ileosotomy, Joint Replacement, Kidney Transplant, Laminectomy, Liver Transplant, Mastectomy, Nephrectomy, Oopherectomy , Orchiectomy, Permanent Pacemaker, Prostatectomy, Splenectomy, Stent, Thoracotomy, TURP, Tonsillectomy, Tubal Ligation, Upper Endoscopy, Valve Replacement, Vasectomy, Vein Stripping/Ligation - Alcohol/Substance Use Hx Alcohol Use: No History of Substance Use: reports: None - Smoking History Smoking history: Never smoked Have you smoked in the past 12 months: No - Social History ADL: Independent Occupation: retired History of Recent Travel: No Home Medications - Allergies Allergies/Adverse Reactions: Allergies Allergy/AdvReac Type Severity Reaction Status Date / Time atenolol AdvReac Verified 06/22/17 11:19 liraglutide [From Victoza] AdvReac Verified 06/22/17 11:19 metoprolol AdvReac Verified 06/22/17 11:19 metoprolol succinate AdvReac Verified 06/22/17 11:19 [From Toprol XL] valsartan [From Diovan] AdvReac Verified 06/22/17 11:19 - Home Medications Home Medications: Ambulatory Orders Aspirin [ASA -] 81 mg PO DAILY 03/11/15 Bisacodyl [Laxative] 5 mg PO DAILY 03/11/15 Furosemide [Lasix -] 40 mg PO DAILY tablet 03/13/15 Cetirizine HCl [Zyrtec -] 10 mg PO DAILY 06/22/17 Cholecalciferol (Vitamin D3) [Vitamin D3 -] 50,000 unit PO WEEKLY 06/22/17 Diclofenac Sodium [Voltaren] 100 gm TP BID 06/22/17 Diltiazem Cd [Cardizem Cd -] 120 mg PO BID 06/22/17 Insulin Aspart [Novolog] 2 - 12 unit SQ ASDIR 06/22/17 Insulin Glargine,Hum.rec.anlog [Lantus Solostar PEN (NF)] 30 units SQ HS Linaclotide [Linzess] 145 mcg PO DAILY 06/22/17 Review of Systems - Review of Systems Constitutional: reports: Loss of Appetite, Weakness Eyes: reports: Blurred Vision HENT: reports: No Symptoms Neck: reports: Decreased ROM Cardiovascular: reports: No Symptoms Respiratory: reports: No Symptoms Gastrointestinal: reports: No Symptoms Genitourinary: reports: No Symptoms Breasts: reports: No Symptoms Reported Musculoskeletal: reports: Joint Pain, Joint Swelling, Muscle Pain, Muscle Weakness Neurological: reports: Unsteady Gait, Weakness Physical Exam Vital Signs: Vital Signs Temperature 98.7 F 06/25/17 18:00 Pulse Rate 83 06/25/17 18:00 Respiratory Rate 18 06/25/17 18:00 Blood Pressure 126/73 06/25/17 18:00 O2 Sat by Pulse Oximetry (%) 97 06/25/17 09:00 Constitutional: Yes: Anxious Eyes: Yes: EOM Intact HENT: Yes: Normocephalic Neck: Yes: Trachea Midline Cardiovascular: Yes: Regular Rate and Rhythm Respiratory: Yes: CTA Bilaterally Gastrointestinal: Yes: Normal Bowel Sounds ...Rectal Exam: Yes: Deferred Renal/: Yes: WNL Breast(s): Yes: WNL Musculoskeletal: Yes: WNL, Joint Stiffness, Joint Swelling, Muscle Pain Extremities: Yes: WNL Edema: No Integumentary: Yes: WNL Neurological: Yes: Alert, Oriented, Numbness, Unsteady Gait Labs: CBC, BMP 06/23/17 08:00 06/25/17 12:40 Problem List - Problems (1) Diabetes Code(s): E11.9 - TYPE 2 DIABETES MELLITUS WITHOUT COMPLICATIONS Qualifiers: Diabetes mellitus complication status: with diabetic arthropathy (2) Fluid overload Code(s): E87.70 - FLUID OVERLOAD, UNSPECIFIED Qualifiers: Hypervolemia type: unspecified Qualified Code(s): E87.70 - Fluid overload, unspecified (3) Left leg weakness Code(s): R29.898 - OTH SYMPTOMS AND SIGNS INVOLVING THE MUSCULOSKELETAL SYSTEM (4) Type 2 diabetes mellitus with other circulatory complications Code(s): E11.59 - TYPE 2 DIABETES MELLITUS WITH OTH CIRCULATORY COMPLICATIONS Assessment/Plan Current Active Problems Diabetes (Acute) Fluid overload (Acute) Left leg weakness (Acute) Leg pain (Acute) uncontrolled dm,neuropathy Abnormal Lab Results 06/25/17 12:40 BUN 19 H Random Glucose 281 H D Laboratory Results - last 24 hr 06/25/17 06/25/17 06/25/17 11:15 12:40 17:29 Sodium 137 Potassium 3.6 Chloride 101 Carbon Dioxide 28 Anion Gap 8 BUN 19 H Creatinine 0.9 D POC Glucometer 250 264 Random Glucose 281 H D Calcium 8.7 06/25/17 23:33 Sodium Potassium Chloride Carbon Dioxide Anion Gap BUN Creatinine POC Glucometer 273 Random Glucose Calcium Laboratory Tests 06/23/17 06/24/17 06/24/17 11:30 16:52 22:20 Sodium Potassium Chloride Carbon Dioxide Anion Gap BUN Creatinine POC Glucometer 287 247 Random Glucose Hemoglobin A1c % 9.5 H D 06/25/17 06/25/17 06/25/17 11:15 12:40 17:29 Sodium 137 Potassium 3.6 Chloride 101 Carbon Dioxide 28 Anion Gap 8 BUN 19 H Creatinine 0.9 D POC Glucometer 250 264 Random Glucose 281 H D Hemoglobin A1c % 06/25/17 23:33 Sodium Potassium Chloride Carbon Dioxide Anion Gap BUN Creatinine POC Glucometer 273 Random Glucose Hemoglobin A1c % plan: bgm tid ac meal coverage low dose novolog use lantus am 20 units
[2017-06-26] MEDS ORDERED: LANTUS INSULIN SQ SCH (07:00)
[2017-06-26] MEDS ORDERED: INSULIN DETEMIR 100 UNITS/ML MDV SQ SCH (07:00)
[2017-06-26] MEDS ORDERED: INSULIN LANTUS SQ SCH (07:00)
[2017-06-26] MEDS: INSULIN SLIDING SCALE (NOVOLOG) 1 VIAL SQ SCH ×2 (07:04→12:00)
--- NOTE | 2017-06-26 09:49 | CONS ---
PHYSICAL MEDICINE REHABILITATION CONSULTATION DATE OF CONSULTATION: 06/26/2017 REFERRING PHYSICIAN: David Carrasco MD DATE OF ADMISSION: 06/22/2017 HISTORY OF PRESENT ILLNESS: Patient is an 86-year-old woman with past medical history of uncontrolled diabetes, atrial fibrillation, congestive heart failure, hyperlipidemia, who was admitted with weakness, pain both in the left upper extremity as well as the bilateral lower extremities. Patient has undergone multiple imaging studies including CT of the head which showed no acute intracranial pathology, with some moderate atrophy. CT of the cervical spine showed normal alignment with some mild degenerative changes. 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 Patient had x-rays including the left shoulder which was unremarkable, chest x-ray which was a limited study. X-ray of the left leg showed soft tissue swelling, vascular calcifications, and some soft tissue swelling over the medial malleolus. Patient's blood work showed elevated hemoglobin A1c of 9.5. She had slightly increased BUN to creatinine ratio of 18 to 0.9. On admission, BNP was slightly elevated. Otherwise, chemistry unremarkable. CBC showed low platelet count of 104, repeat at 105, but stable hemoglobin on June 23 of 13.0; normal WBC of 7.0. Patient was evaluated by Physical Therapy. Able to ambulate short distance, 30 feet, with a waddling gait. Moderate assist was required for [id number] transfer. Patient complains of pain under both posterior ankles in the area of the Achilles as well as in the left shoulder. PAST MEDICAL AND SURGICAL HISTORY: As above. Patient also has a history of obesity, in addition to diabetes; OR; diffuse osteoarthritis; atrial fibrillation, rate controlled; hypertension. SOCIAL HISTORY: Patient lives in an apartment. There is an elevator for entrance. Per the medical record, patient ambulated without assistive device until recently when she started using a rollator. She has a home health aide Sunday through Sunday, 4 hours a day, and also, has a cane at home. CURRENT FUNCTION: As above. REVIEW OF SYSTEMS: No headache. No lightheaded or dizziness currently, although she gets lightheaded at times. No nausea, vomiting, difficulty swallowing, or difficulty chewing. No chest pain, shortness of breath, dyspnea on exertion, cough, or abdominal pain. No bowel or bladder incontinence or retention. She has numbness in the distal lower extremities, pain under both ankles as well as the left shoulder with movement. No pain at rest. No numbness or tingling in the upper extremities. PHYSICAL EXAMINATION: General: An obese woman, seen lying in bed. She is awake and cooperative with Citizen [place] commands. HEENT: She is normocephalic and atraumatic. Her extraocular muscles appear intact. Neck: Supple. Extremities: Trace edema in the lower extremities. She is tender under the bilateral calf in the area of the Achilles tendon and just proximal to the Achilles, diminished, but no isolated calf tenderness. Skin: Without any breakdown. Neuromuscular: Awake, alert, and cooperative. Cranial nerves 2-12 are grossly intact. She has limited strength in the left shoulder due to pain but has nearly full range of motion, arthritic change in the hands which are not limited, at least 4 to 4+/5 distal strength as well as 4/5 strength in the right shoulder girdle. In the lower extremities, 2-3/5 hip girdle strength. She complains of pain with movement of the ankle but full range of motion in the ankle. Arthritic changes are noted in the knees, but no medial or lateral joint line tenderness. Diminished sensation to light touch and pinprick below the knees bilaterally without absent reflexes in the lower extremities. Unable to stand or ambulate her at this time, too much pain. OVERALL IMPRESSION: 1. Deficits in mobility and activities of daily living, multifactorial. 2. Diffuse pain including bilateral ankle pain. 3. Deconditioning. 4. Probable diffuse underlying osteoarthritis. 5. Probable diabetic peripheral neuropathy. 6. Morbid obesity. 7. History of coronary artery disease, atrial fibrillation, myocardial infarction. 8. History of hypertension. 9. Elevated risk for deep venous thrombosis due to immobility. 10. Uncontrolled diabetes. 11. Mild thrombocytopenia. PLAN/SUGGESTION: 1. Continue physical therapy. 2. Out of bed to chair. 3. Ice to the left ankle as needed, 10 minutes. 4. Pain control, Tylenol. 5. Consider DVT prophylaxis with subcutaneous heparin if not anticoagulated for atrial fibrillation. 6. [facility]. Thank you for this referral. ANG HEREDIA M.D. EDWAR/[id number]
[2017-06-26] MEDS: BISACODYL 5 MG TABLET.DR (FP) PO PRN (09:54)
--- NOTE | 2017-06-26 10:18 | DS ---
Physical Examination Vital Signs: Vital Signs Temperature 97.6 F 06/26/17 06:00 Pulse Rate 87 06/26/17 06:00 Respiratory Rate 18 06/26/17 06:00 Blood Pressure 133/82 06/26/17 06:00 O2 Sat by Pulse Oximetry (%) 96 06/25/17 21:00 Constitutional: Yes: Calm Neck: Yes: Trachea Midline Cardiovascular: Yes: Regular Rate and Rhythm, S1, S2 Respiratory: Yes: CTA Bilaterally Gastrointestinal: Yes: Normal Bowel Sounds, Soft Labs: CBC, BMP 06/23/17 08:00 06/25/17 12:40 Discharge Summary Reason For Visit: HYPOVOLEMIA/PAIN OF LOWER EXTERMITY Current Active Problems Diabetes (Acute) Fluid overload (Acute) Left leg weakness (Acute) Leg pain (Acute) Type 2 diabetes mellitus with other circulatory complications (Acute) Hospital Course: - Primary Care Physician PCP: David Carrasco - Admission Chief Complaint: LEG WEAKNESS/UNSTEADY GAIT History of Present Illness: 86 Y/O FEMALE WITH AFIB/DM/HTN HERE WITH PROGRESSIVELY WORSE WEAKNESS TO LEG AND UNSTEADY GAIT History Source: Patient Limitations to Obtaining History: Poor Historian - Past Medical History Cardiovascular: Yes: AFIB, CHF, HTN, Hyperlipdemia, Mitral Insufficiency Gastrointestinal: Yes: Diverticulosis. No: Ascites, Cancer, Constipation, Crohn 's Disease, Diverticulitis, Esophageal Varices, Gastritis, GERD, GI Bleed, Hemorrhoids, Hiatal Hernia, Inflamatory Bowel Disease, Irritable Bowel Disease, Pancreatitis, Peptic Ulcer Disease, Ulcerative Colitis, Other Endocrine: Yes: Diabetes Mellitus. No: Eran's Disease, [place]'s Disease, Diabetes Insipidus, Hyperparathyroidism, Hyperthyroidism, Hypothyroidism, Osteopenia, SIADH, Other - Past Surgical History Past Surgical History: Yes: None. No: AAA Repair, AICD, Amputation, Appendectomy, Arthrosocopy, AV Fistula/Graft, Bariatric Surgery, Breast Biopsy, Bypass, CABG, Carotid Endarterectomy, Cataract Removal, Cholecystectomy, Colectomy, Colonoscopy, Colostomy, Craniotomy, , Cystectomy, Hernia Repair, Hysterectomy, Ileal Conduit, Ileosotomy, Joint Replacement, Kidney Transplant, Laminectomy, Liver Transplant, Mastectomy, Nephrectomy, Oopherectomy , Orchiectomy, Permanent Pacemaker, Prostatectomy, Splenectomy, Stent, Thoracotomy, TURP, Tonsillectomy, Tubal Ligation, Upper Endoscopy, Valve Replacement, Vasectomy, Vein Stripping/Ligation - Smoking History Smoking history: Never smoked Have you smoked in the past 12 months: No - Alcohol/Substance Use Hx Alcohol Use: No History of Substance Use: reports: None - Social History ADL: Independent Occupation: retired History of Recent Travel: No patient is 86 yr old female came in for progressive leg weakness had ct scan and xray of ankle and ct head and neck no acute pathology noted seen by PT needs STR, left ankle ice daily for 10 mintues endocrine lantus 20 units and sliding scale CAD refusing BB statin plavix afib on aspriin takes bid dose of diltiazem Condition: Improved - Instructions Diet, Activity, Other Instructions: ice the left ankle oob to chair give daily aspirin at 12;00 noon with lunch Referrals: Bruno Briones MD [Primary Care Provider] - - Home Medications Comprehensive Discharge Medication List: Ambulatory Orders Aspirin [ASA -] 81 mg PO DAILY 03/11/15 Bisacodyl [Laxative] 5 mg PO DAILY 03/11/15 Furosemide [Lasix -] 40 mg PO DAILY tablet 03/13/15 Cetirizine HCl [Zyrtec -] 10 mg PO DAILY 06/22/17 Cholecalciferol (Vitamin D3) [Vitamin D3 -] 50,000 unit PO WEEKLY 06/22/17 Diclofenac Sodium [Voltaren] 100 gm TP BID 06/22/17 Diltiazem Cd [Cardizem Cd -] 120 mg PO BID 06/22/17 Insulin Aspart [Novolog] 2 - 12 unit SQ ASDIR 06/22/17 Insulin Glargine,Hum.rec.anlog [Lantus Solostar PEN (NF)] 30 units SQ HS Linaclotide [Linzess] 145 mcg PO DAILY 06/22/17
--- NOTE | 2017-06-26 10:34 | PN ---
Progress Note (short form) - Note Progress Note: patient can only leave via [facility] to [facility] family aware that they have to pay additional cost cannot leave in family car bc of unsteady gait Problem List - Problems (1) Left leg weakness Code(s): R29.898 - OTH SYMPTOMS AND SIGNS INVOLVING THE MUSCULOSKELETAL SYSTEM (2) A-fib Code(s): I48.91 - UNSPECIFIED ATRIAL FIBRILLATION (3) CHF (congestive heart failure) Code(s): I50.9 - HEART FAILURE, UNSPECIFIED (4) Diabetes Code(s): E11.9 - TYPE 2 DIABETES MELLITUS WITHOUT COMPLICATIONS Qualifiers: Diabetes mellitus complication status: with diabetic arthropathy
[2017-06-26] MEDS: METHYL SALICYLATE/MENTHOL OINT 30 GM TUBE TP SCH (12:58)
[2017-06-26] MEDS: ASPIRIN COATED 81 MG TABLET.EC PO SCH (12:58)
[2017-06-26 14:15] VITALS: PULSE 96
[2017-06-26 14:18] VITALS: BP 138/68; TEMP 97.8
--- NOTE | 2017-06-26 20:42 | EKG ---
Test Reason : Blood Pressure : / mmHG Vent. Rate : 093 BPM Atrial Rate : 227 BPM P-R Int : 000 ms QRS Dur : 100 ms QT Int : 400 ms P-R-T Axes : 000 -65 083 degrees QTc Int : 497 ms ATRIAL FIBRILLATION LEFT ANTERIOR FASCICULAR BLOCK PROLONGED QT ABNORMAL ECG WHEN COMPARED WITH ECG OF 14-JUN-2017 19:56, NONSPECIFIC T WAVE ABNORMALITY, WORSE IN LATERAL LEADS REPEAT EKG IF CLINICALLY INDICATED Confirmed by CHRISTINA MCNEAL MD ([id number]) on 06/26/2017 8:41:48 PM Referred By: Brandon SOTO Confirmed By:CHRISTINA MCNEAL MD
== END 2017-06-26 13:39 | DRG 638 ==
LOC: JER 10:56 → JERBED 16:19 → UNDOADMIN 16:58 → J5S 18:30
PROVIDERS: ADMIT Family Medicine; ATTEND Family Medicine
DX: E11.618 Type 2 diabetes mellitus with other diabetic arthropathy (principal); I50.30 Unspecified diastolic (congestive) heart failure; E11.40 Type 2 diabetes mellitus with diabetic neuropathy, unspecified; E11.65 Type 2 diabetes mellitus with hyperglycemia; I48.91 Unspecified atrial fibrillation; E78.5 Hyperlipidemia, unspecified; I34.0 Nonrheumatic mitral (valve) insufficiency; K57.90 Diverticulosis of intestine, part unspecified, without perforation or abscess without bleeding; M25.512 Pain in left shoulder; R26.81 Unsteadiness on feet; R29.898 Other symptoms and signs involving the musculoskeletal system; I25.10 Atherosclerotic heart disease of native coronary artery without angina pectoris; I11.0 Hypertensive heart disease with heart failure; M79.605 Pain in left leg; E87.70 Fluid overload, unspecified; Z91.14 Patient's other noncompliance with medication regimen; Z79.4 Long term (current) use of insulin
CPT/HCPCS: 36415; 70450-TC; 71010-TC; 72125-TC; 73030-TC-LT; 73590-TC-LT; 73610-TC-LT; 80048; 80053; 81003; 81015; 83036; 83735; 83880; 85025; 85027; 93005; 93010; 93970-TC; 97116-GP; 97161-GP; 99282-25

== ENCOUNTER 2018-01-30 07:10 | Observation (INO) | payer OTHER ==
--- NOTE | 2018-01-30 08:06 | PDOC ---
History of Present Illness - General Chief Complaint: Weakness Stated Complaint: WEANKESS Time Seen by Provider: 01/30/18 07:28 History Source: Patient, EMS - History of Present Illness Timing/Duration: other (this am) Associated Symptoms: reports: nausea/vomiting, weakness. denies: chest pain, diaphoresis, fever/chills, headaches, shortness of breath Past History - Past Medical History Allergies/Adverse Reactions: Allergies Allergy/AdvReac Type Severity Reaction Status Date / Time atenolol AdvReac Verified 01/30/18 07:23 liraglutide [From Victoza] AdvReac Verified 01/30/18 07:23 metoprolol AdvReac Verified 01/30/18 07:23 metoprolol succinate AdvReac Verified 01/30/18 07:23 [From Toprol XL] valsartan [From Diovan] AdvReac Verified 01/30/18 07:23 Home Medications: Ambulatory Orders Aspirin [ASA -] 81 mg PO DAILY 03/11/15 Furosemide [Lasix -] 40 mg PO DAILY tablet 03/13/15 Cetirizine HCl [Zyrtec -] 10 mg PO DAILY 06/22/17 Diclofenac Sodium [Voltaren] 100 gm TP BID 06/22/17 Diltiazem Cd [Cardizem Cd -] 120 mg PO BID 06/22/17 Insulin Aspart [Novolog] 2 - 12 unit SQ ASDIR 06/22/17 Insulin (Levemir) [Levemir Vial] 25 units SQ HS #100 ml MDD 1 06/26/17 COPD: No DVT: No Diabetes: Yes HTN: Yes - Immunization History Immunization Up to Date: No - Suicide/Smoking/Psychosocial Hx Smoking History: Never smoked Have you smoked in the past 12 months: No Information on smoking cessation initiated: No Hx Alcohol Use: No Drug/Substance Use Hx: No Substance Use Type: None Hx Substance Use Treatment: No Review of Systems - Review of Systems Constitutional: Yes: Weakness. No: Chills, Fever Respiratory: No: Cough, Shortness of Breath Cardiac (ROS): No: Chest Pain, Palpitations ABD/GI: Yes: Nausea. No: Diarrhea, Vomiting, Abdominal cramping *Physical Exam - Vital Signs Last Vital Signs Temp Pulse Resp BP Pulse Ox 97.2 F L 71 17 164/66 98 01/30/18 07:23 01/30/18 07:23 01/30/18 07:23 01/30/18 07:23 01/30/18 07:40 - Physical Exam General Appearance: Yes: Appropriately Dressed. No: Apparent Distress HEENT: positive: Normal Voice Neck: positive: Supple Respiratory/Chest: positive: Lungs Clear, Normal Breath Sounds. negative: Respiratory Distress Cardiovascular: positive: Regular Rate, S1, S2 Gastrointestinal/Abdominal: positive: Soft. negative: Tender Extremity: positive: Normal Inspection Integumentary: positive: Dry, Warm Neurologic: positive: dust operator II-XII NML intact, Alert, Normal Mood/Affect, Motor Strength 5/5, Other (no drift, Raphael intact) ED Treatment Course - LABORATORY CBC & Chemistry Diagram: 01/30/18 08:11 01/30/18 08:11 - RADIOLOGY Radiology Studies Ordered: Category Date Time Status CHEST X-RAY PORTABLE* [RAD] Stat Radiology 01/30/18 07:55 Ordered Medical Decision Making - Medical Decision Making 01/30/18 08:04 87-year-old female, poor historian with history of A. fib on dilt and aspirin, diabetes and hypertension, brought in by EMS after daughter called to report that patient appeared lethargic this a.m. and complaining of generalized weakness and nausea. Patient denies vomiting, chest pain, shortness of breath, cough, fever, chills, abdominal pain, change in bowel movements or dysuria. See exam Gen weakness R/o cardiac vs metabolic vs infxn -ekg -cxr -labs -anticipate admission 01/30/18 12:52 Chest x-ray with some new congestive changes. BMP in the 500s, much lower than in the past. Patient on Lasix at home. Given initial hypoxia at triage, generalized weakness possibly secondary to CHF. Will give IV dose of Lasix in ED as discussed with Dr. Iniguez. Rest of workup unremarkable. Case discussed with Dr. Martinez who states he saw patient for the first time 3 days ago when patient was complaining of possible left-sided weakness. Would like patient to have CT scan while in ED and be admitted. Of note, patient non- focal today on exam. Currently tolerating a tray of food. Will contact hospitalist at this time and admit *DC/Admit/Observation/Transfer Diagnosis at time of Disposition: Weakness - Discharge Dispostion Condition at time of disposition: Fair Admit: Yes - Referrals - Patient Instructions - Post Discharge Activity
[2018-01-30 08:30] LABS: BASO % 0.3 % (0-2.0); EOS % 0.1 % (0-4.5); HEMATOCRIT 32.8 % (32.4-45.2); HEMOGLOBIN 11.1 GM/dL (10.7-15.3); LYMPH % 26.6 % (8-40); MCH 30.9 pg (25.7-33.7); MCHC 33.8 g/dl (32.0-36.0); MEAN CELL VOLUME 91.3 fl (80-96); MEAN PLT VOLUME 10.4 fl (7.5-11.1); MONO % 8.5 % (3.8-10.2); NEUT % 64.5 % (42.8-82.8); PLATELET COUNT 94 K/MM3 (134-434); RBC 3.59 M/mm3 (3.60-5.2); RDW 15.1 % (11.6-15.6); WHITE BLOOD COUNT 4.8 K/mm3 (4.0-10.0)
[2018-01-30 08:59] LABS: ALBUMIN 3.8 g/dl (3.4-5.0); ANION GAP 11 (8-16); BLOOD UREA NITROGEN 13 mg/dL (7-18); CALCIUM 8.6 mg/dL (8.5-10.1); CHLORIDE 102 mmol/L (98-107); CO2 28 mmol/L (21-32); CREATININE 0.8 mg/dL (0.55-1.02); GLUCOSE,RANDOM 236 mg/dL (74-106); POTASSIUM 3.3 mmol/L (3.5-5.1); SGOT/AST 20 U/L (15-37); SGPT/ALT 23 U/L (12-78); SODIUM 141 mmol/L (136-145)
[2018-01-30 09:03] LABS: ALK PHOS 83 U/L (45-117); BILIRUBIN,TOTAL 0.4 mg/dL (0.2-1.0); TOT PROT 7.2 g/dl (6.4-8.2)
--- NOTE | 2018-01-30 09:11 | PDOC ---
*Physical Exam - Vital Signs Last Vital Signs Temp Pulse Resp BP Pulse Ox 97.2 F L 71 17 164/66 98 01/30/18 07:23 01/30/18 07:23 01/30/18 07:23 01/30/18 07:23 01/30/18 07:40 - Physical Exam Comments: 01/30/18 09:10 The patient was examined by [NELLY Nelson] under my direct supervision. I personally evaluated the patient. I concur with the above findings and the plan of care. ED Treatment Course - LABORATORY CBC & Chemistry Diagram: 01/31/18 06:35 01/31/18 06:35 - ADDITIONAL ORDERS Additional order review: Laboratory Results 01/30/18 08:11 Sodium 141 Potassium 3.3 L Chloride 102 Carbon Dioxide 28 Anion Gap 11 BUN 13 Creatinine 0.8 Creat Clearance w eGFR > 60 Random Glucose 236 H Calcium 8.6 Total Bilirubin 0.4 D AST 20 ALT 23 Alkaline Phosphatase 83 Creatine Kinase 64 Troponin I < 0.02 Total Protein 7.2 Albumin 3.8 01/30/18 08:11 RBC 3.59 L MCV 91.3 MCHC 33.8 RDW 15.1 MPV 10.4 Neutrophils % 64.5 Lymphocytes % 26.6 D Monocytes % 8.5 Eosinophils % 0.1 Basophils % 0.3 *DC/Admit/Observation/Transfer Diagnosis at time of Disposition: Weakness - Discharge Dispostion Disposition: VNS/HOME HEALTH CARE Condition at time of disposition: Stable - Prescriptions - Referrals - Patient Instructions - Post Discharge Activity
[2018-01-30 09:18] LABS: URINE APPEARANCE TURBID; URINE BILIRUBIN NEGATIVE (<2.0 mg/dL); URINE BLOOD 1+ (NEGATIVE); URINE COLOR YELLOW; URINE GLUCOSE (UA) 2+ (NEGATIVE); URINE KETONE NEGATIVE (NEGATIVE); URINE LEUK ESTERASE TRACE (NEGATIVE); URINE NITRITE NEGATIVE (NEGATIVE); URINE PROTEIN NEGATIVE (NEGATIVE); URINE UROBILINOGEN NEGATIVE mg/dL (0.2-1.0)
[2018-01-30 09:24] LABS: EPI CELLS RARE /HPF (FEW); URINE BACTERIA MANY /hpf (NONE SEEN)
[2018-01-30] MEDS ORDERED: SODIUM CHLORIDE 250 ML IV STA (09:36)
[2018-01-30] MEDS ORDERED: FUROSEMIDE 40 MG/4 ML INJECTABLE VIAL IVPUSH ONE (10:16)
[2018-01-30] MEDS ORDERED: ONDANSETRON 4 MG/2 ML VIAL IVPUSH ONE (10:55)
[2018-01-30] MEDS ORDERED: ONDANSETRON 4 MG/2 ML VIAL ONE (10:56)
[2018-01-30] MEDS ORDERED: FUROSEMIDE 40 MG/4 ML INJECTABLE VIAL ONE (10:56)
[2018-01-30] MEDS ORDERED: ACETAMINOPHEN 325 MG TABLET (FP) PO ONE (11:06)
[2018-01-30] MEDS ORDERED: ACETAMINOPHEN 325 MG TABLET (FP) ONE (11:46)
[2018-01-30 11:55] LABS: N-TERMINAL BNP 559.83 pg/ml (5-450)
[2018-01-30] MEDS ORDERED: ACETAMINOPHEN 325 MG TABLET (FP) PO PRN (13:43)
--- NOTE | 2018-01-30 13:56 | HP ---
Admitting History and Physical - Admission Chief Complaint: weakness History of Present Illness: This is an 87 year old female with pmhx HTN, DM II, afib (on no ac), cardiac cath in 2014 non obstructive CAD, was brought to ED by EMS. Per daughter at bedside, pt awoke at 2am. She was very lethargic this morning around 5-6am and could not get out of bed she was so weak and pressed her life alert necklace. She has a head ache. Currently, denies change in vision, chest pain, sob, abdominal pain nausea, vomiting, difficulty urinating. She last saw her [place] in Oct, she sees Dr. Ma every 4 months. She denies weakness to either side in particular with me. Baseline weights low 200lbs History Source: Patient, Family Member, Medical Record Limitations to Obtaining History: No Limitations - Past Medical History Cardiovascular: Yes: AFIB, CHF, HTN, Hyperlipdemia, Mitral Insufficiency Gastrointestinal: Yes: Diverticulosis Endocrine: Yes: Diabetes Mellitus - Past Surgical History Past Surgical History: Yes: None, Vein Stripping/Ligation - Smoking History Smoking history: Never smoked Have you smoked in the past 12 months: No - Alcohol/Substance Use Hx Alcohol Use: No History of Substance Use: reports: None - Social History Usual Living Arrangement: Yes: Alone ADL: Support Services (aid) Occupation: retired History of Recent Travel: No Home Medications - Allergies Allergies/Adverse Reactions: Allergies Allergy/AdvReac Type Severity Reaction Status Date / Time atenolol AdvReac Verified 01/30/18 07:23 liraglutide [From Victoza] AdvReac Verified 01/30/18 07:23 metoprolol AdvReac Verified 01/30/18 07:23 metoprolol succinate AdvReac Verified 01/30/18 07:23 [From Toprol XL] valsartan [From Diovan] AdvReac Verified 01/30/18 07:23 - Home Medications Home Medications: Ambulatory Orders Aspirin [ASA -] 81 mg PO DAILY 03/11/15 Furosemide [Lasix -] 40 mg PO DAILY tablet 03/13/15 Cetirizine HCl [Zyrtec -] 10 mg PO DAILY PRN 06/22/17 Diltiazem Cd [Cardizem Cd -] 120 mg PO BID 06/22/17 Insulin (Levemir) [Levemir Vial] 28 unit SQ DAILY 01/30/18 Review of Systems - Review of Systems Constitutional: reports: Lethargy, Weakness Eyes: reports: No Symptoms HENT: reports: No Symptoms Neck: reports: No Symptoms Cardiovascular: reports: No Symptoms Respiratory: reports: No Symptoms Gastrointestinal: reports: No Symptoms Genitourinary: reports: No Symptoms Musculoskeletal: reports: No Symptoms Integumentary: reports: No Symptoms Neurological: reports: Weakness Endocrine: reports: No Symptoms Hematology/Lymphatic: reports: No Symptoms Psychiatric: reports: No Symptoms Physical Examination Vital Signs: Vital Signs Temperature 97.2 F L 01/30/18 07:23 Pulse Rate 64 01/30/18 09:32 Respiratory Rate 18 01/30/18 09:32 Blood Pressure 121/64 01/30/18 09:32 O2 Sat by Pulse Oximetry (%) 98 01/30/18 09:32 Constitutional: Yes: No Distress Eyes: Yes: Conjunctiva Clear Neck: Yes: Supple Cardiovascular: Yes: Regular Rate and Rhythm, S1, S2 Respiratory: Yes: Regular, CTA Bilaterally Gastrointestinal: Yes: Normal Bowel Sounds, Soft, Other (protubrent) Renal/: Yes: WNL Edema: LLE: Trace, RLE: Trace Peripheral Pulses WNL: Yes Neurological: Yes: Alert, Oriented, Cran Nerves II-XII Intact (motor 5/5, no facial assymetry, sensort in tact) Labs: CBC, BMP 01/30/18 08:11 01/30/18 08:11 Imaging - Results Chest X-ray: Report Reviewed, Image Reviewed (some central congestive changes) Problem List - Problems (1) Weakness Code(s): R53.1 - WEAKNESS (2) A-fib Code(s): I48.91 - UNSPECIFIED ATRIAL FIBRILLATION (3) CHF (congestive heart failure) Code(s): I50.9 - HEART FAILURE, UNSPECIFIED (4) Diabetes Code(s): E11.9 - TYPE 2 DIABETES MELLITUS WITHOUT COMPLICATIONS Qualifiers: Diabetes mellitus complication status: with diabetic arthropathy Assessment/Plan Assessment: 87 year old female with pmhx afib, htn, dm II admitted with weakness Plan: 1. Generalized weakness - Possible due to chf exacerbation vs infectious etiology - Received lasix IV in ED, will monitor response - Replete potassium before further diuresis - Check urine cx - PT evaluation 2. Acute CHF exacerbation - Pt ~17lbs over dry weight, baseline low 200's, per cardiology pt takes lasix prn, not kristi as directed - Start lasix 40mg daily IV - Monitor electrolytes - Daily weights - Recent ECHO 2017 per cardiology office records show no change from 2015, nml lvef, mod mr/tr, mild-mod pulm htn 3. Afib - Rate controlled - Cardizem CD 120mg daily - ASA daily, no AC as pt refuses to take 4. HTN - Meds as above 5. DM II - Levemir 25units - ISS, BGM ACHS 6. Thrombocytopenia - Has had in past, however today lowest reading 7. Hypokalemia - Replete 40meq x1 now Visit type - Emergency Visit Emergency Visit: Yes ED Registration Date: 01/30/18 Care time: The patient presented to the Emergency Department on the above date and was hospitalized for further evaluation of their emergent condition. - New Patient This patient is new to me today: Yes Date on this admission: 01/31/18 - Critical Care Critical Care patient: No Hospitalist Screening - Colonoscopy Questionnaire Colonoscopy Questionnaire: Colonoscopy Questionnaire - Patient: 50 - 75 years old and never had a screening colonoscopy: Unknown History of colon or rectal polyps, or CA: Unknown History of IBD, Crohn's disease or UC: Unknown History of abdominal radiation therapy as a child: Unknown - Relative: 1 with colon or rectal CA, or polyps at age 60 or younger: Unknown Colon or rectal CA diagnosed at age 45 or younger: Unknown Multiple relatives with colon or rectal CA: Unknown - Outcome: Screening Result: Negative Screen
[2018-01-30] MEDS ORDERED: POTASSIUM CHLORIDE ORAL LIQUID 20 MEQ/15 ML PO ONE (14:15)
[2018-01-30 15:04] VITALS: BMI 35.7
--- NOTE | 2018-01-30 15:33 | EKG ---
Test Reason : Blood Pressure : / mmHG Vent. Rate : 086 BPM Atrial Rate : 085 BPM P-R Int : 000 ms QRS Dur : 110 ms QT Int : 468 ms P-R-T Axes : 000 -49 048 degrees QTc Int : 560 ms ATRIAL FIBRILLATION WITH A COMPETING JUNCTIONAL PACEMAKER LEFT ANTERIOR FASCICULAR BLOCK PROLONGED QT ABNORMAL ECG WHEN COMPARED WITH ECG OF 26-JUN-2017 10:35, QT HAS LENGTHENED Confirmed by KOJO MURGUIA, SCOTT ([id number]) on 01/30/2018 3:33:22 PM Referred By: Confirmed By:SCOTT VARMA MD
[2018-01-30] MEDS ORDERED: PT OWN MED DRAWER 7, Y5N ONE (17:43)
[2018-01-30] MEDS: INSULIN SLIDING SCALE (NOVOLOG) 1 VIAL SQ SCH ×3 (17:50→21:41)
[2018-01-30] MEDS: INSULIN DETEMIR 100 UNITS/ML MDV SQ SCH (21:41)
[2018-01-31] MEDS: INSULIN SLIDING SCALE (NOVOLOG) 1 VIAL SQ SCH ×4 (06:24→21:33)
[2018-01-31 07:52] LABS: BASO % 0.1 % (0-2.0); EOS % 0.2 % (0-4.5); HEMATOCRIT 32.9 % (32.4-45.2); HEMOGLOBIN 11.3 GM/dL (10.7-15.3); LYMPH % 27.5 % (8-40); MCH 31.1 pg (25.7-33.7); MCHC 34.5 g/dl (32.0-36.0); MEAN CELL VOLUME 90.3 fl (80-96); MEAN PLT VOLUME 10.5 fl (7.5-11.1); MONO % 7.1 % (3.8-10.2); NEUT % 65.1 % (42.8-82.8); PLATELET COUNT 101 K/MM3 (134-434); RBC 3.64 M/mm3 (3.60-5.2); RDW 15.4 % (11.6-15.6); WHITE BLOOD COUNT 4.7 K/mm3 (4.0-10.0)
[2018-01-31 08:28] LABS: CHLORIDE 104 mmol/L (98-107); POTASSIUM 3.8 mmol/L (3.5-5.1); SODIUM 141 mmol/L (136-145)
[2018-01-31 08:41] LABS: ALBUMIN 3.7 g/dl (3.4-5.0); ALK PHOS 81 U/L (45-117); ANION GAP 6 (8-16); BILIRUBIN,TOTAL 0.4 mg/dL (0.2-1.0); BLOOD UREA NITROGEN 12 mg/dL (7-18); CALCIUM 8.5 mg/dL (8.5-10.1); CO2 31 mmol/L (21-32); CREATININE 0.8 mg/dL (0.55-1.02); GLUCOSE,RANDOM 165 mg/dL (74-106); MAGNESIUM 2.1 mg/dL (1.8-2.4); PHOSPHOROUS 3.5 mg/dL (2.5-4.9); SGOT/AST 21 U/L (15-37); SGPT/ALT 22 U/L (12-78); TOT PROT 6.9 g/dl (6.4-8.2)
[2018-01-31] MEDS: FUROSEMIDE 40 MG/4 ML INJECTABLE VIAL IVPUSH SCH (10:56)
[2018-01-31] MEDS: ASPIRIN 81 MG CHEWABLE TABLETS PO SCH (10:56)
--- NOTE | 2018-01-31 12:12 | PN ---
Physical Exam: SUBJECTIVE: Patient seen and examined. She feel the same as yesterday, weak. She has some nausea but, does not want medication. Family at bedside. OBJECTIVE: Vital Signs Period Temp Pulse Resp BP Sys/Moreau Pulse Ox Last 24 Hr 98.2 F-98.4 F 74-90 18-20 140-156/60-83 95-95 PE Neuro: alert, awake, cn 2-12 intact HEENT: l eye ptosis Pulm: basilar rhonchi, no cough, no wheezing, no sob CV: s1 s2 rrr Abd: s nt + bs Ext: trace b/l pitting edema Laboratory Results - last 24 hr 01/31/18 01/31/18 06:35 06:35 WBC 4.7 RBC 3.64 Hgb 11.3 Hct 32.9 MCV 90.3 MCH 31.1 MCHC 34.5 RDW 15.4 Plt Count 101 L MPV 10.5 Neutrophils % 65.1 Lymphocytes % 27.5 Monocytes % 7.1 Eosinophils % 0.2 D Basophils % 0.1 Sodium 141 Potassium 3.8 Chloride 104 Carbon Dioxide 31 Anion Gap 6 L BUN 12 Creatinine 0.8 Creat Clearance w eGFR > 60 POC Glucometer Random Glucose 165 H Calcium 8.5 Phosphorus 3.5 Magnesium 2.1 Total Bilirubin 0.4 AST 21 ALT 22 Alkaline Phosphatase 81 Total Protein 6.9 Albumin 3.7 Active Medications Generic Name Dose Route Start Last Admin Trade Name Freq PRN Reason Stop Dose Admin Acetaminophen 650 mg 01/30/18 13:43 Tylenol - PO Q4H PRN PAIN LEVEL 1-5 Aspirin 81 mg 01/31/18 10:00 01/31/18 10:56 Asa - PO 81 mg DAILY STANLEY Administration Diltiazem HCl 120 mg 01/30/18 22:00 01/31/18 10:57 Cardizem Cd - PO 120 mg BID STANLEY Administration Furosemide 40 mg 01/31/18 10:00 01/31/18 10:56 Lasix Injection - IVPUSH 40 mg DAILY STANLEY Administration Insulin Aspart 1 vial 01/30/18 16:30 01/31/18 06:24 Novolog Vial Sliding Scale - SQ Not Given ACHS STANLEY Protocol Insulin Detemir 25 units 01/30/18 22:00 01/30/18 21:41 Levemir Vial SQ 25 units HS STANLEY Administration Assessment: 87 year old female with pmhx afib, htn, dm II admitted with weakness Plan: 1. Generalized weakness - Possible due to chf exacerbation - No infectious s/s at this time - Urine cx pending, afebrile - PT evaluation today 2. Acute CHF exacerbation - Pt down 10 lbs today, goal low 200's - Continue Lasix 40mg IV daily - Daily weights - Recent ECHO 2017 per cardiology office records show no change from 2015, nml lvef, mod mr/tr, mild-mod pulm htn 3. Afib - Rate controlled - Cardizem CD 120mg daily - ASA daily, no AC as pt refuses to take - EKG noted, QTC less 4. HTN - Meds as above 5. DM II - Levemir 25units - Pt refusing novolog 6. Thrombocytopenia - Mild improvement 7. Hypokalemia - Resolved Problem List - Problems (1) Weakness Code(s): R53.1 - WEAKNESS (2) A-fib Code(s): I48.91 - UNSPECIFIED ATRIAL FIBRILLATION (3) CHF (congestive heart failure) Code(s): I50.9 - HEART FAILURE, UNSPECIFIED (4) Diabetes Code(s): E11.9 - TYPE 2 DIABETES MELLITUS WITHOUT COMPLICATIONS Qualifiers: Diabetes mellitus complication status: with diabetic arthropathy Visit type - Emergency Visit Emergency Visit: Yes ED Registration Date: 01/30/18 Care time: The patient presented to the Emergency Department on the above date and was hospitalized for further evaluation of their emergent condition. - New Patient This patient is new to me today: No - Critical Care Critical Care patient: No
--- NOTE | 2018-01-31 12:46 | CON.CARD ---
Cardiology Consult (text) - Consultation Consultation Note: cc: cad/afib hpi: 87 yo f with h/o afib (asa only, refuses AC), NSTEMI 03/2015 (medical management), htn, hld, dCHF (takes lasix prn up to 3 times/week), mod MR, dm, here with general weakness. Has noticed le edema a little worse lately but did not take any more lasix because it makes her urinate too much. No cp, sob, palps, dizzy, loc, pnd, orthopnea. Sees me for cardio. pmh: per hpi psh: non contrib social: no toxic habits ros: per hpi; no f/c/s, nvd, cough, nasal congestion, ANAYA, vision changes, rash , gib, hematuria, dysuria fam: no family h/o scd. Home Medications Medication Instructions Recorded Aspirin [ASA -] 81 mg PO DAILY 03/11/15 Furosemide [Lasix -] 40 mg PO DAILY tablet 03/13/15 Cetirizine HCl [Zyrtec -] 10 mg PO DAILY PRN 06/22/17 Diltiazem Cd [Cardizem Cd -] 120 mg PO BID 06/22/17 Insulin (Levemir) [Levemir Vial] 28 unit SQ DAILY 01/30/18 Current Medications Generic Name Dose Route Start Last Admin Trade Name Freq PRN Reason Stop Dose Admin Acetaminophen 650 mg 01/30/18 13:43 Tylenol - PO Q4H PRN PAIN LEVEL 1-5 Aspirin 81 mg 01/31/18 10:00 01/31/18 10:56 Asa - PO 81 mg DAILY STANLEY Administration Diltiazem HCl 120 mg 01/30/18 22:00 01/31/18 10:57 Cardizem Cd - PO 120 mg BID STANLEY Administration Furosemide 40 mg 01/31/18 10:00 01/31/18 10:56 Lasix Injection - IVPUSH 40 mg DAILY STANLEY Administration Insulin Aspart 1 vial 01/30/18 16:30 01/31/18 12:09 Novolog Vial Sliding Scale - SQ Not Given ACHS STANLEY Protocol Insulin Detemir 25 units 01/30/18 22:00 01/30/18 21:41 Levemir Vial SQ 25 units HS STANLEY Administration pe: Vital Signs Period Temp Pulse Resp BP Sys/Moreau Pulse Ox Last 24 Hr 98.2 F-98.4 F 74-90 18-20 140-156/60-83 95-95 nad, no jvd irreg, s1 s2 no mrg cta b/l, nl eff trace le edema bl abd nt nd pos bs pos dp pt no jaundice/diaphoresis aaox3 Laboratory Last Values WBC 4.7 K/mm3 (4.0-10.0) 01/31/18 06:35 RBC 3.64 M/mm3 (3.60-5.2) 01/31/18 06:35 Hgb 11.3 GM/dL (10.7-15.3) 01/31/18 06:35 Hct 32.9 % (32.4-45.2) 01/31/18 06:35 MCV 90.3 fl (80-96) 01/31/18 06:35 MCH 31.1 pg (25.7-33.7) 01/31/18 06:35 MCHC 34.5 g/dl (32.0-36.0) 01/31/18 06:35 RDW 15.4 % (11.6-15.6) 01/31/18 06:35 Plt Count 101 K/MM3 (134-434) L 01/31/18 06:35 MPV 10.5 fl (7.5-11.1) 01/31/18 06:35 Neutrophils % 65.1 % (42.8-82.8) 01/31/18 06:35 Lymphocytes % 27.5 % (8-40) 01/31/18 06:35 Monocytes % 7.1 % (3.8-10.2) 01/31/18 06:35 Eosinophils % 0.2 % (0-4.5) D 01/31/18 06:35 Basophils % 0.1 % (0-2.0) 01/31/18 06:35 Sodium 141 mmol/L (136-145) 01/31/18 06:35 Potassium 3.8 mmol/L (3.5-5.1) 01/31/18 06:35 Chloride 104 mmol/L (98-107) 01/31/18 06:35 Carbon Dioxide 31 mmol/L (21-32) 01/31/18 06:35 Anion Gap 6 (8-16) L 01/31/18 06:35 BUN 12 mg/dL (7-18) 01/31/18 06:35 Creatinine 0.8 mg/dL (0.55-1.02) 01/31/18 06:35 Creat Clearance w eGFR > 60 (>60) 01/31/18 06:35 POC Glucometer 252 UNITS (80-120) 01/31/18 11:49 Random Glucose 165 mg/dL (74-106) H 01/31/18 06:35 Calcium 8.5 mg/dL (8.5-10.1) 01/31/18 06:35 Phosphorus 3.5 mg/dL (2.5-4.9) 01/31/18 06:35 Magnesium 2.1 mg/dL (1.8-2.4) 01/31/18 06:35 Total Bilirubin 0.4 mg/dL (0.2-1.0) 01/31/18 06:35 AST 21 U/L (15-37) 01/31/18 06:35 ALT 22 U/L (12-78) 01/31/18 06:35 Alkaline Phosphatase 81 U/L (45-117) 01/31/18 06:35 Creatine Kinase 64 IU/L (26-192) 01/30/18 08:11 Troponin I < 0.02 ng/ml (0.00-0.05) 01/30/18 08:11 B-Natriuretic Peptide 559.83 pg/ml (5-450) H 01/30/18 08:11 Total Protein 6.9 g/dl (6.4-8.2) 01/31/18 06:35 Albumin 3.7 g/dl (3.4-5.0) 01/31/18 06:35 Urine Color Yellow 01/30/18 08:30 Urine Appearance Turbid 01/30/18 08:30 Urine pH 7.0 (5.0-8.0) 01/30/18 08:30 Ur Specific Lyons 1.015 (1.001-1.035) 01/30/18 08:30 Urine Protein Negative (NEGATIVE) 01/30/18 08:30 Urine Glucose (UA) 2+ (NEGATIVE) H 01/30/18 08:30 Urine Ketones Negative (NEGATIVE) 01/30/18 08:30 Urine Blood 1+ (NEGATIVE) H 01/30/18 08:30 Urine Nitrite Negative (NEGATIVE) 01/30/18 08:30 Urine Bilirubin Negative (<2.0 mg/dL) 01/30/18 08:30 Urine Urobilinogen Negative mg/dL (0.2-1.0) 01/30/18 08:30 Ur Leukocyte Esterase Trace (NEGATIVE) 01/30/18 08:30 Urine WBC (Auto) 13 /hpf (3-5) 01/30/18 08:30 Urine RBC (Auto) 1 /hpf (0-3) 01/30/18 08:30 Ur Epithelial Cells Rare /HPF (FEW) 01/30/18 08:30 Urine Bacteria Many /hpf (NONE SEEN) 01/30/18 08:30 cxr: no sig chf head CT: no acute pathology ecg: afib, rate 80s, no ischemic changes echo 02/2016: nl lv size, low nl lvef, mild global hk, nl rv, mild lae, mod mr, mild tr, rvsp 40-50 mibi 03/2014: no ischemia, nl lvef [place] [place] non [place] cad (mild diffuse pRCA disease was only abnormality noted); also had RHC c/w diastolic chf a/p: 87 yo f with h/o afib (asa only, refuses AC), NSTEMI 03/2015 (medical management), htn, hld, dCHF (takes lasix prn up to 3 times/week), mod MR, dm, here with general weakness. weakness - possibly due to chf, improving with lasix acute diastolic CHF: -mild vol overload, baseline wt is around 205 lbs -likely vol up due to noncompliance with lasix at home -recent office echo with stable chronic findings -likely ok for dc tomorrow. pt instructed to take lasix 40 mg once a day at least 5 days a week to prevent vol buildup. pt needs to take potassium supplement with lasix. afib: - Overall rate controlled with dilt. - Pt has previously been tried on coumadin, xarelto, eliquis, and pradaxa as outpatient and has stopped taking them due to nonspecific side effects --> declines AC and is managed with ASA alone as outpatient. htn: - has had numerous side effects/intolerances to various med classes. currently overall controlled for age. Continue diltiazem. hld: - pt declines statin. mod MR: - routine surveillance echocardiograms as outpatient. No signs of valvular decompensation. bp/diuresis plan as above. CAD - has hx of prior nstemi in 2014. At that time was treated conservatively with medical management only due to her medication noncompliance and hx of self-d' cing meds. She has declined plavix, statin, BB in the past. She has no cp/ angina, no signs acs, continue asa (if she will take) and dilt.
--- NOTE | 2018-01-31 12:56 | EKG ---
Test Reason : Blood Pressure : / mmHG Vent. Rate : 090 BPM Atrial Rate : 085 BPM P-R Int : 000 ms QRS Dur : 102 ms QT Int : 418 ms P-R-T Axes : 000 -56 069 degrees QTc Int : 511 ms ATRIAL FIBRILLATION LEFT ANTERIOR FASCICULAR BLOCK PROLONGED QT ABNORMAL ECG WHEN COMPARED WITH ECG OF 30-JAN-2018 07:27, NO SIGNIFICANT CHANGE WAS FOUND Confirmed by STEVEN MURGUIA, SHELBY ([id number]) on 01/31/2018 12:56:32 PM Referred By: Confirmed By:SHELBY HARRIS MD
[2018-01-31] MEDS ORDERED: INSULIN (NOVOLOG) ASPART 100 UNITS/ML 10ML VIAL ONE (20:59)
[2018-01-31] MEDS: INSULIN DETEMIR 100 UNITS/ML MDV SQ SCH (21:33)
[2018-02-01] MEDS: INSULIN SLIDING SCALE (NOVOLOG) 1 VIAL SQ SCH (06:41)
[2018-02-01] MEDS: ASPIRIN 81 MG CHEWABLE TABLETS PO SCH (10:08)
[2018-02-01] MEDS: FUROSEMIDE 40 MG/4 ML INJECTABLE VIAL IVPUSH SCH (10:08)
--- NOTE | 2018-02-01 10:11 | DS ---
Physical Exam: SUBJECTIVE: Patient seen and examined. She has some abdominal cramping due to no BM. She would prefer to take her BM meds at home. Denies sob, cp. OBJECTIVE: Vital Signs Period Temp Pulse Resp BP Sys/Moreau Pulse Ox Last 24 Hr 97.6 F-98.2 F 74-88 18-20 138-160/79-90 95 PE Neuro: alert, awake, cn 2-12 intact Pulm: CTAB CV: s1 s2 rrr Abd: soft + bs Ext: trace le edema Laboratory Results - last 24 hr 01/31/18 01/31/18 01/31/18 11:49 17:28 21:23 POC Glucometer 252 351 285 02/01/18 06:40 POC Glucometer 185 HOSPITAL COURSE: Date of Admission:01/30/18 Date of Discharge: 02/01/18 Minutes to complete discharge: 37 Discharge Summary Reason For Visit: WEANKESS Current Active Problems Weakness (Acute) Hospital Course: Initial Hospital Course: Briefly, this 87 year old female with pmhx HTN, DM II, afib (on no ac), cardiac cath in 2014 non obstructive CAD, was brought to ED by EMS. Per daughter at bedside, pt awoke at 2am. She was very lethargic this morning around 5-6am and could not get out of bed she was so weak and pressed her life alert necklace. Baseline weight low 200lbs. Subsequent Hospital Course/Progress Note/DC summary: Assessment: 87 year old female with pmhx afib, htn, dm II admitted with weakness Plan: 1. Generalized weakness - Likely due to chf exacerbation - Home with resumption of services and PT, ambulate with walker, pt refuses SNF 2. Acute CHF exacerbation - Improved with IV diuresis, weight around baseline today - Counseled pt on importance of taking lasix everyday - Will need to go home and take an minimum for 5 days with k dur supplement, daughter aware and then everyday thereafter - Cardiology office follow up - Recent ECHO 2017 per cardiology office records show no change from 2015, nml lvef, mod mr/tr, mild-mod pulm htn 3. Afib - Rate controlled - Cardizem CD 120mg daily - ASA daily, no AC as pt refuses to take 4. HTN - Meds as above 5. DM II - Levemir 25units - Pt refusing novolog 6. Thrombocytopenia - Possibly sequestering - Plts did rise 7. Hypokalemia - Resolved Dispo: - Home with meds above and cardiology follow up - PT and daughter aware and agree to above plan - Home care/services to be reinstated Condition: Stable - Instructions Diet, Activity, Other Instructions: Please return to the ED for any new, persistent, or worsening symptoms. Follow up with your PCP in 1 week Take lasix for 5 days in a row at minimum with potassium supplement Keep follow up appointment with Dr. Parrish Referrals: Eldon Parrish MD [Staff Physician] - Disposition: VNS/HOME HEALTH CARE - Home Medications Comprehensive Discharge Medication List: Ambulatory Orders Aspirin [ASA -] 81 mg PO DAILY 03/11/15 Cetirizine HCl [Zyrtec -] 10 mg PO DAILY PRN 06/22/17 Diltiazem Cd [Cardizem Cd -] 120 mg PO BID 06/22/17 Insulin (Levemir) [Levemir Vial] 28 unit SQ DAILY 01/30/18 Furosemide [Lasix] 40 mg PO DAILY #30 tablet 02/01/18 Potassium Chloride [K-Dur -] 20 meq PO DAILY #30 tablet.er 02/01/18 Problem List - Problems (1) Weakness Code(s): R53.1 - WEAKNESS (2) A-fib Code(s): I48.91 - UNSPECIFIED ATRIAL FIBRILLATION (3) CHF (congestive heart failure) Code(s): I50.9 - HEART FAILURE, UNSPECIFIED (4) Diabetes Code(s): E11.9 - TYPE 2 DIABETES MELLITUS WITHOUT COMPLICATIONS Qualifiers: Diabetes mellitus complication status: with diabetic arthropathy This patient is new to me today: Yes Date on this admission: 02/01/18 Emergency Visit: Yes ED Registration Date: 01/30/18 Care time: The patient presented to the Emergency Department on the above date and was hospitalized for further evaluation of their emergent condition. Critical Care patient: No - Discharge Referral Referred to [facility] No
[2018-02-01 11:31] VITALS: BP 154/74; PULSE 87; TEMP 98.1
--- NOTE | 2018-02-01 12:06 | PN ---
Progress Note (short form) - Note Progress Note: s: no cp sob palps dizzy o: Vital Signs Period Temp Pulse Resp BP Sys/Moreau Pulse Ox Last 24 Hr 97.6 F-98.2 F 74-88 18-20 138-160/74-90 95-98 nad, no jvd irreg, s1 s2 no mrg cta b/l, nl eff no le edema bl abd nt nd pos bs no jaundice/diaphoresis aaox3 Home Medications Medication Instructions Recorded Aspirin [ASA -] 81 mg PO DAILY 03/11/15 Cetirizine HCl [Zyrtec -] 10 mg PO DAILY PRN 06/22/17 Diltiazem Cd [Cardizem Cd -] 120 mg PO BID 06/22/17 Insulin (Levemir) [Levemir Vial] 28 unit SQ DAILY 01/30/18 Furosemide [Lasix] 40 mg PO DAILY #30 tablet 02/01/18 Potassium Chloride [K-Dur -] 20 meq PO DAILY #30 tablet.er 02/01/18 CBC, BMP 01/31/18 06:35 01/31/18 06:35 cxr: no sig chf head CT: no acute pathology ecg: afib, rate 80s, no ischemic changes echo 02/2016: nl lv size, low nl lvef, mild global hk, nl rv, mild lae, mod mr, mild tr, rvsp 40-50 mibi 03/2014: no ischemia, [place] [place] (mild diffuse pRCA disease was only abnormality noted); also had RHC c/w diastolic chf a/p: 87 yo f with h/o afib (asa only, refuses AC), NSTEMI 03/2015 (medical management), htn, hld, dCHF (takes lasix prn up to 3 times/week), mod MR, dm, here with general weakness. weakness - possibly due to chf, improving with lasix acute diastolic CHF: -mild vol overload, baseline wt is around 205 lbs -likely vol up due to noncompliance with lasix at home -recent office echo with stable chronic findings -after some iv lasix back to baseline. of for dc. pt/family instructed to take lasix 40 mg once a day at least 5 days a week to prevent vol buildup. pt needs to take potassium supplement with lasix. afib: - Overall rate controlled with dilt. - Pt has previously been tried on coumadin, xarelto, eliquis, and pradaxa as outpatient and has stopped taking them due to nonspecific side effects --> declines AC and is managed with ASA alone as outpatient. htn: - has had numerous side effects/intolerances to various med classes. currently overall controlled for age. Continue diltiazem. hld: - pt declines statin. mod MR: - routine surveillance echocardiograms as outpatient. No signs of valvular decompensation. bp/diuresis plan as above. CAD - has hx of prior nstemi in 2014. At that time was treated conservatively with medical management only due to her medication noncompliance and hx of self-d' cing meds. She has declined plavix, statin, BB in the past. She has no cp/ angina, no signs acs, continue asa (if she will take) and dilt.
== END 2018-02-01 10:57 | disposition home health service (06) ==
LOC: JER 07:10 → UNDOADMOB 13:12 → JERBED 13:12 → INTOOBSV 13:12 → JERBED 13:43 → J5S 16:21
PROVIDERS: ADMIT Internal Medicine; ATTEND Nurse Practitioner Acute Care
PROC: 3E033GC Introduction of Other Therapeutic Substance into Peripheral Vein, Percutaneous Approach (ICD-10-PCS; principal; 2018-01-30)
PROC: 3E0337Z Introduction of Electrolytic and Water Balance Substance into Peripheral Vein, Percutaneous Approach (ICD-10-PCS; 2018-01-30)
PROC: 3E013VG Introduction of Insulin into Subcutaneous Tissue, Percutaneous Approach (ICD-10-PCS; 2018-01-30)
DX: R53.1 Weakness (principal); I10 Essential (primary) hypertension; I48.91 Unspecified atrial fibrillation; I50.31 Acute diastolic (congestive) heart failure; I25.10 Atherosclerotic heart disease of native coronary artery without angina pectoris; I34.0 Nonrheumatic mitral (valve) insufficiency; E11.9 Type 2 diabetes mellitus without complications; E78.5 Hyperlipidemia, unspecified; E87.6 Hypokalemia; D69.6 Thrombocytopenia, unspecified; Z79.4 Long term (current) use of insulin; Z79.82 Long term (current) use of aspirin; Z88.8 Allergy status to other drugs, medicaments and biological substances; Z98.61 Coronary angioplasty status
CPT/HCPCS: 36415; 70450-TC; 71045-TC-FY; 80053; 81003; 81015; 82550; 82962; 83735; 83880; 84100; 84484; 85025; 87086; 87804; 93005; 93010; 96361; 96372; 96374; 96375; 99284-25; G0378